=== PATIENT | female | born 1990 | race Caucasian/White ===

== ENCOUNTER 2020-06-13 09:54 | Outpatient (CLI) | payer MEDICAID, SELFPAY ==
--- NOTE | 2020-06-13 10:02 | XR_ITS ---
WS: [id number] XR lumbar spine min 4V [id number] REASON FOR EXAM: BACK PAIN FINDINGS: There are 6 nonrib-bearing lumbar vertebral bodies. There is no significant compression deformity or focal lesion of the lumbar vertebral bodies. Mild narrowing of the intervertebral disc space between the last unreactive vertebral body and S1. There are mild degenerative changes in the facet joints of the last 2 segments of the lumbar spine. XR/XR lumbar spine min 4V [id number] IMPRESSION: 6. Lumbar vertebral bodies. Mild changes of degenerative spondylosis as above.
--- NOTE | 2020-06-13 10:02 | XR_ITS ---
WS: [id number] XR thoracic spine 2V [id number] REASON FOR EXAM: BACK PAIN FINDINGS: No abnormality of the thoracic vertebral bodies. Intervertebral disc spaces are well preserved. There is normal alignment of the thoracic spine. XR/XR thoracic spine 2V [id number] IMPRESSION: No significant abnormality.
== END 2020-06-13 09:55 | disposition home or self-care (01) ==
PROVIDERS: PCP Internal Medicine; Visit Provider Nurse Practitioner Family
DX: M54.6 Pain in thoracic spine (principal); M54.5 Low back pain
CPT/HCPCS: 72070; 72114

== ENCOUNTER 2020-07-02 10:24 | Outpatient (RCR) | payer MEDICAID, SELFPAY | END 2020-07-04 23:59 | disposition home or self-care (01) | LOC: SPT 10:24 | PROVIDERS: PCP Internal Medicine; Referring Provider Internal Medicine; Visit Provider Internal Medicine | DX: M54.5 Low back pain (principal); M54.6 Pain in thoracic spine; G89.29 Other chronic pain | CPT/HCPCS: 97110; 97161 ==

== ENCOUNTER 2020-07-05 06:00 | Outpatient (RCR) | payer MEDICAID, SELFPAY | END 2020-08-04 23:59 | disposition home or self-care (01) | LOC: SPT 06:00 | PROVIDERS: PCP Internal Medicine; Referring Provider Internal Medicine; Visit Provider Internal Medicine | DX: M54.5 Low back pain (principal); M54.6 Pain in thoracic spine; M54.9 Dorsalgia, unspecified | CPT/HCPCS: 97110 ==

== ENCOUNTER 2020-10-17 07:19 | Emergency (ER) | payer MEDICAID, SELFPAY ==
[2020-10-17] VITALS (12 sets, daily range): BP systolic 97–120; BP diastolic 55–78; PULSE 52–75; RESP 16–18; TEMP 36.8; O2SAT 98–100; BMI 23.8
--- NOTE | 2020-10-17 07:29 | US_ITS ---
WS: [id number] RIGHT UPPER QUADRANT ULTRASOUND HISTORY: abd pain COMPARISON: None available. Liver: 15.8 cm in length. Normal size liver. No bile duct dilatation or mass. Gallbladder: Normally distended gallbladder. No hydrops or wall thickening. No pericholecystic fluid. No stones or polyps. CBD: 0.5 cm Pancreas: Normal size and echogenicity. Right kidney: 9.9 cm in length. Normal size kidney. There is very minimal splitting of the renal pelv is with fluid. No hydronephrosis. Aorta and IVC: Unremarkable abdominal aorta and IVC. No ascites. US/US gall bladder [id number] IMPRESSION: 1. Normal gallbladder and biliary duct system. 2. Negative liver.
--- NOTE | 2020-10-17 07:35 | ED_ITS ---
HPI - Abdominal Pain General: Chief Complaint: Abdominal Pain Stated Complaint: VOMITING FOR 3 DAYS, AB/BACK PAIN Time Seen by Provider: 10/17/20 07:20 History of Present Illness: HPI narrative: 30-year-old female presents emergency room with complaint of nausea vomiting and severe epigastric right upper quadrant abdominal pain. The pain began 2 days ago the nausea and vomiting has presented mostly overnight. She denies any dysuria urgency or frequency no hematemesis or coffee-ground emesis she is not ever had this before. She has really noticed anything that makes it better or worse she has not noticed any triggers for her. She denies any fever sweats chills no respiratory symptoms MD elicited complaint: abdominal pain Onset (ago): day(s) Pain Consistency: constant Location: Epigastric Severity: severe Quality: cramping and stabbing Radiation: back Migration to: RUQ Exacerbating factors: nothing Relieving factors: nothing Associated Symptoms: Reports anorexia, bloating, GI cramping, nausea, poor appetite and vomiting; Denies belching, change in bowel habits, change in stool character, chills, coffee ground emesis, constipation, diarrhea, dyspepsia, dysuria, excessive flatus, fever(s), heartburn, hematochezia, hematuria, hematemesis, fecal incontinence, loose stools, melena and syncope Review of Systems Const: Denies: fever(s) or chills ENMT: Denies: throat pain, ear or mastoid pain, nasal discharge or nasal congestion Card: Denies: syncope Resp: Denies: dyspnea, productive cough or non-productive cough GI: Reports: nausea, vomiting, bloating and GI cramping; Denies: hematemesis, coffee ground emesis, heartburn, diarrhea, constipation, belching, excessive flatus, fecal incontinence, change in bowel habits, change in stool character, hematochezia or melena : Denies: dysuria or hematuria Skin/Breast: Denies: rash or pruritus PFSH ED PFSH: Social History Smoking and tobacco status: current every day smoker Physical Exam Const: GENERAL APPEARANCE: cooperative ORIENTATION/CONSCIOUSNESS: Yes awake, Yes oriented to person, Yes oriented to place and Yes oriented to time HENMT: COMMON NORMALS: normocephalic, atraumatic and hearing grossly normal bilaterally HEAD & SCALP: normocephalic and atraumatic Neck/C-Spine: COMMON NORMALS: no JVD Resp: COMMON NORMALS: normal respiratory effort, No retractions, No use of accessory muscles and clear to auscultation bilaterally AUSCULTATION: clear to auscultation bilaterally Cardio: COMMON NORMALS: no JVD, regular rate, regular rhythm and No murmurs present (Cardio) RATE: regular rate RHYTHM: regular rhythm GI: COMMON NORMALS: No hepatosplenomegaly present AUSCULTATION: Yes Hypoactive bowel sounds present PALPATION: Yes Tenderness to palpation present (GI) Details: RUQ, No Guarding due to palpation present (GI) and Yes No hepatosplenomegaly present Extremity: COMMON NORMALS: normal to inspection, capillary refill normal, no clubbing, cyanosis or edema, no calf tenderness and no pedal edema Neuro: SENSORIUM/ORIENTATION: Yes oriented to person, Yes oriented to place and Yes oriented to time Skin: COMMON NORMALS: no rashes or lesions noted GENERAL SKIN EXAM: no rashes or lesions noted Course Vital Signs: Vital signs: Vital Signs Temperature 98.2 F 10/17/20 07:22 Pulse Rate 65 10/17/20 10:30 Respiratory Rate 18 10/17/20 10:35 Blood Pressure 106/69 10/17/20 10:30 Pulse Oximetry 98 10/17/20 10:35 MDM - Abdominal Pain MDM Narrative: Medical decision making narrative: Labs ultrasound and CT overall unremarkable patient's vital signs are good however she has significant right upper quadrant epigastric pain. She did have a little improvement with the GI cocktail but not much narcotics had relieved more of the pain. I suspect she has biliary dyskinesia we will go and discharge her home with hydrocodone and antiemetics advised very bland diet. Initially should do clear liquids for 24 hours we will set her up for a HIDA scan and a surgical consultation return if is unable to keep fluids down. Lab Data: Labs: Lab Results 10/17/20 10/17/20 10/17/20 Range/Units 07:40 07:40 07:40 WBC 7.7 (4.0-10.0) 10^3/ uL RBC 4.88 (4.1-5.3) 10^6/u L Hgb 14.7 (11.5-15.3) g/dL Hct 43.5 (37.0-47.0) % MCV 89.1 (81-99) fL MCH 30.1 (28.0-34.0) pg MCHC 33.8 (30.0-36.0) g/dL RDW 11.5 L (12.1-15.1) % Plt Count 174 (130-400) 10^3/c mm MPV 11.7 H (7.4-10.4) fL Neut % (Auto) 65.5 % Lymph % (Auto) 25.5 % Reeves % (Auto) 6.3 % Eos % (Auto) 1.9 % Baso % (Auto) 0.5 % Neut # (Auto) 5.05 (1.8-7.7) 10^3/u L Lymph # (Auto) 2.0 (0.8-4.8) 10^3/u L Reeves # (Auto) 0.5 (0.2-0.9) 10^3/u L Eos # (Auto) 0.2 (0.0-0.8) 10^3/u L Baso # (Auto) 0.0 (0.0-0.1) 10^3/u L Nucleated RBC % (a uto) 0 % Nucleated RBCs # 0.0 /100WBC Sodium 138 (136-145) mmol/L Potassium 4.1 (3.5-5.1) mmol/L Chloride 104 (98-107) mmol/L Carbon Dioxide 25 (22-29) mmol/L Anion Gap 13.1 (5-19) BUN 14 (6-20) mg/dL Creatinine 0.6 (0.5-0.9) mg/dL GFR Calculation 117.4 (90-130) mL/min Glucose 103 (65-115) mg/dL Calculated Osmolal ity 287 (285-295) mOsm/k g Calcium 8.8 (8.5-10.5) mg/dL Magnesium 2.0 (1.7-2.3) mg/dL Total Bilirubin 0.3 (0.15-1.2) mg/dL AST 11 (0-32) U/L ALT 10 (0-33) U/L Alkaline Phosphata se 75 (35-105) IU/L Total Protein 6.5 L (6.6-8.7) g/dL Albumin 4.3 (3.5-5.2) g/dL Globulin 2.2 (1.3-4.6) g/dL Lipase 18 (13-60) U/L HCG, Qual Negative (Negative) Urine Color (Yellow) Urine Appearance (CLEAR) Urine pH (5-7) Ur Specific Gravit y (1.005-1.030) Urine Protein (Negative) Urine Glucose (UA) (Normal) Urine Ketones (Negative) Urine Blood (Negative) Urine Nitrate (Negative) Urine Bilirubin (Negative) Prot Sulfosalicyli c Acd (Negative) Urine Urobilinogen (Negative) mg/dL Ur Leukocyte Haven ase (Negative) Urine RBC (0-2) /hpf Urine WBC (0-5) /hpf Ur Squamous Epith Cells (0-5) /hpf Amorphous Sediment Urine Bacteria (NONE) /hpf 10/17/20 Range/Units 09:18 WBC (4.0-10.0) 10^3/ uL RBC (4.1-5.3) 10^6/u L Hgb (11.5-15.3) g/dL Hct (37.0-47.0) % MCV (81-99) fL MCH (28.0-34.0) pg MCHC (30.0-36.0) g/dL RDW (12.1-15.1) % Plt Count (130-400) 10^3/c mm MPV (7.4-10.4) fL Neut % (Auto) % Lymph % (Auto) % Reeves % (Auto) % Eos % (Auto) % Baso % (Auto) % Neut # (Auto) (1.8-7.7) 10^3/u L Lymph # (Auto) (0.8-4.8) 10^3/u L Reeves # (Auto) (0.2-0.9) 10^3/u L Eos # (Auto) (0.0-0.8) 10^3/u L Baso # (Auto) (0.0-0.1) 10^3/u L Nucleated RBC % (a uto) % Nucleated RBCs # /100WBC Sodium (136-145) mmol/L Potassium (3.5-5.1) mmol/L Chloride (98-107) mmol/L Carbon Dioxide (22-29) mmol/L Anion Gap (5-19) BUN (6-20) mg/dL Creatinine (0.5-0.9) mg/dL GFR Calculation (90-130) mL/min Glucose (65-115) mg/dL Calculated Osmolal ity (285-295) mOsm/k g Calcium (8.5-10.5) mg/dL Magnesium (1.7-2.3) mg/dL Total Bilirubin (0.15-1.2) mg/dL AST (0-32) U/L ALT (0-33) U/L Alkaline Phosphata se (35-105) IU/L Total Protein (6.6-8.7) g/dL Albumin (3.5-5.2) g/dL Globulin (1.3-4.6) g/dL Lipase (13-60) U/L HCG, Qual (Negative) Urine Color Straw (Yellow) Urine Appearance Sl hazy (CLEAR) Urine pH 8 H (5-7) Ur Specific Gravit y 1.010 (1.005-1.030) Urine Protein Neg (Negative) Urine Glucose (UA) Norm (Normal) Urine Ketones Negative (Negative) Urine Blood Neg (Negative) Urine Nitrate Negative (Negative) Urine Bilirubin Neg (Negative) Prot Sulfosalicyli c Acd Negative (Negative) Urine Urobilinogen Norm (Negative) mg/dL Ur Leukocyte Haven ase Negative (Negative) Urine RBC None (0-2) /hpf Urine WBC 0-4 H (0-5) /hpf Ur Squamous Epith Cells 55-80 H (0-5) /hpf Amorphous Sediment Not Reportable Urine Bacteria 1+ H (NONE) /hpf Discharge Plan Discharge Patient Disposition: Home Clinical Impression: Abdominal pain, Biliary dyskinesia Condition: Stable Prescriptions: New hydrocodone-acetaminophen 5-325 mg tablet 1 tab PO Q6H PRN (Reason: pain) Qty: 25 RF: 0 Zofran 4 mg tablet 4 mg PO Q6H PRN (Reason: nausea and vomiting) Qty: 25 RF: 0 No Action Prozac 20 mg Capsule 20 mg PO DAILY RF: 0 Discharge Orders: Discharge ED (Routine); Ordered 10/17/20 Ordered By: Peter Sotomayor Referrals: Moon,Fozia M, DO [Primary Care Provider] - Discharge Diet: Clear Liquid Discharge Activity: Increase activity as tolerated Patient Instructions: Abdominal Pain (ED), Opioid Safety Activity Restrictions/Additional Instructions: Case management will call with appointments for HIDA scan and referral to general surgery. Coding Level of Care Code ED Staff Nurse [facility] Resource Team for [employer] Fwrod Exam Comprehensive
[2020-10-17] MEDS: ondansetron 2 mg/ML SDV 2 mL 4 MG IVP (07:42)
[2020-10-17] MEDS: morphine 4 mg/mL SDV 1 mL IVP (07:43)
[2020-10-17] MEDS: sodium chloride 0.9% 1,000 ML 999 ML IV (07:43)
--- NOTE | 2020-10-17 07:47 | PC.NURSE ---
US done at bedside. Pt states she is unable to void at this time d/t dehydration.
--- NOTE | 2020-10-17 07:55 | CT_ITS ---
WS: [id number] CT ABDOMEN AND PELVIS WITH CONTRAST HISTORY: Mid abdominal pain with nausea and vomiting for 3 days. TECHNIQUE: Imaging performed of the abdomen and pelvis with IV contrast. Single phase imaging of the abdomen. Coronal and sagittal reformats are submitted. All CT scans at [facility] use at least one of these dose optimization techniques: automated exposure control; mA and/or kV adjustment per patient size (includes targeted exams where dose is matched to clinical indication); or iterativ e reconstruction. IV CONTRAST: Omnipaque 300; 95 mL IV. Oral contrast: No DLP: 733.3 mGy.cm COMPARISON: 11/04/2018 Lower thorax: Mild dependent changes at the lung bases. Heart is normal size. No hiatal hernia. Liver/biliary system: Normal size liver. There is very mild central bile duct dilatation. This mild d ilatation was present on the prior study of 11/04/2018. Common bile duct is normal size. Gallbladder: No gallbladder hydrops. No adjacent fluid. The wall is not thickened. No stones identifi ed. Pancreas: Prominent pancreas due to young age of the patient is similar to the prior studies. Spleen: Normal. Adrenal glands: Normal. Right kidney: Normal. Left kidney: Normal. Aorta: Normal. Lymphadenopathy: None. Free fluid: None. GI tract: There is significant thickening involving the body and antrum of the stomach. Mucosal edema extends up to 13 mm. Diffuse constipation. Appendix not identified but no evidence for appendicitis. Abdominal wall: Unremarkable abdominal wall. No hernia. Pelvis: Prior hysterectomy. No ascites or adenopathy. RIGHT ovary is identified and contains a follic le. Bones: Unremarkable. CT/CT abdomen pelvis w con* [id number] IMPRESSION: 1. Marked thickening and edema involving the body and antrum of the stomach. C onsider gastritis or peptic ulcer disease. 2. Negative gallbladder. 3. Very slight bile duct dilatation is similar to prior studies. 4. Prior hysterectomy. 5. Constipation.
[2020-10-17 08:01] LABS: Basophils % 0.5 %; Eosinophils # 0.2 10^3/uL (0.0-0.8); Eosinophils % 1.9 %; Hematocrit 43.5 % (37.0-47.0); Hemoglobin 14.7 g/dL (11.5-15.3); Lymphocytes % 25.5 %; Mean Corpuscular HGB Conc 33.8 g/dL (30.0-36.0); Mean Corpuscular Hemoglobin 30.1 pg (28.0-34.0); Mean Corpuscular Volume 89.1 fL (81-99); Mean Platelet Volume 11.7 fL (7.4-10.4); Monocytes # 0.5 10^3/uL (0.2-0.9); Monocytes % 6.3 %; Neutrophils # 5.05 10^3/uL (1.8-7.7); Neutrophils % 65.5 %; Nucleated Red Blood Cells % 0 %; Platelet Count 174 10^3/cmm (130-400); Red Blood Count 4.88 10^6/uL (4.1-5.3); Red Cell Distribution Width 11.5 % (12.1-15.1); White Blood Count 7.7 10^3/uL (4.0-10.0)
[2020-10-17 08:09] LABS: HCG, Serum Qual Negative (Negative)
[2020-10-17 08:15] LABS: Alanine Aminotransferase 10 U/L (0-33); Albumin Level 4.3 g/dL (3.5-5.2); Alkaline Phosphatase 75 IU/L (35-105); Anion Gap 13.1 (5-19); Aspartate Amino Transferase 11 U/L (0-32); Blood Urea Nitrogen 14 mg/dL (6-20); Calcium 8.8 mg/dL (8.5-10.5); Carbon Dioxide 25 mmol/L (22-29); Chloride 104 mmol/L (98-107); Globulin 2.2 g/dL (1.3-4.6); Glomerular Filtration Rate 117.4 mL/min (90-130); Glucose 103 mg/dL (65-115); Lipase 18 U/L (13-60); Osmolality Calculated 287 mOsm/kg (285-295); Potassium 4.1 mmol/L (3.5-5.1); Sodium 138 mmol/L (136-145); Total Bilirubin 0.3 mg/dL (0.15-1.2); Total Protein 6.5 g/dL (6.6-8.7)
--- NOTE | 2020-10-17 08:18 | PC.NURSE ---
Pt to CT
[2020-10-17] MEDS: iohexol 300 mg/mL 100 mL Btl IV (08:28)
--- NOTE | 2020-10-17 09:13 | PC.NURSE ---
Pt to BR with clean catch kit and instructions for UA.
[2020-10-17] MEDS: lidocaine 2% viscous 15 ML, aluminum-mag hydrox-simethicon 30 ML, sucralfate oral liq 1 GM PO (09:19)
--- NOTE | 2020-10-17 09:22 | PC.NURSE ---
UA collected, labeled and sent to lab.
[2020-10-17] MEDS: promethazine 25 mg/mL SDV 1 mL IM (09:44)
[2020-10-17] MEDS: morphine 4 mg/mL SDV 1 mL 6 MG IVP (09:45)
[2020-10-17 10:02] LABS: Urine Appearance SL Hazy (CLEAR); Urine Color Straw (Yellow)
[2020-10-17 10:03] LABS: Add Urine Culture? No; Add Urine Microscopic? YES; Bacteria Urine 1+ /hpf; Bilirubin Urine Neg (Negative); Blood Urine Neg (Negative); Glucose Urine UA Norm (Normal); Ketones Urine Negative (Negative); Leukocyte Esterase Urine Negative (Negative); Nitrate Urine Negative (Negative); Protein Urine Neg (Negative); Squamous Epithelial Cell Urine 55-80 /hpf (0-5); Sulfosalicylic Acid Urine Negative (Negative); Urobilinogen Urine Norm (Negative); WBC Urine 0-4 /hpf (0-5); pH Urine 8 (5-7)
[2020-10-17] MEDS: morphine 4 mg/mL SDV 1 mL 2 MG IVP (10:35)
--- NOTE | 2020-10-18 10:53 | DCPLANNER ---
manager concrete had message to schedule an outpatient HIDA scan for patient. manager concrete faxed signed order to centralized scheduling. manager concrete also had message to schedule a follow up appointment for patient with general surgery for consultation for biliary dyskinesia. manager concrete emailed patients information to both Kelsea and Antoinette at [facility] general surgery. Patients information will be printed and reviewed. Clinic will call patient with appointment information.
--- NOTE | 2020-10-25 15:18 | DCPLANNER ---
Patient has an out patient HIDA scan scheduled for October at 10:00. Centralized scheduling will call patient with appointment information. Patient has a follow up appointment scheduled for Wednesday, October 28, 2020 at 2:[address] Cuba at [facility] General Surgery. Clinic will call patient with appointment information.
--- NOTE | 2021-01-08 07:47 | DCPLANNER ---
Patient had a HIDA scan scheduled for 10.31.20 - patient did attend appointment Patient had a follow up appointment scheduled for 10.28.[address] Trujillo at [facility] - patient did attend appointment.
== END 2020-10-17 10:58 | disposition home or self-care (01) ==
PROVIDERS: Emergency Provider Family Medicine; PCP Internal Medicine
DX: R10.9 Unspecified abdominal pain (principal); K82.8 Other specified diseases of gallbladder; F17.210 Nicotine dependence, cigarettes, uncomplicated
CPT/HCPCS: 74177; 76705; 80053; 81001; 83690; 83735; 84703; 85025; 96361; 96372; 96374; 96375; 96376; 99284; J2270; J2405; J2550; J7030; Q9967

== ENCOUNTER 2020-10-31 09:15 | Outpatient (CLI) | payer MEDICAID, SELFPAY ==
--- NOTE | 2020-10-31 09:20 | NM_ITS ---
WS: [id number] NUCLEAR MEDICINE HIDA SCAN WITH GALLBLADDER EJECTION FRACTION HISTORY: RUQ PAIN COMPARISON: CT 10/17/2020 TECHNIQUE: The patient was intravenously injected with 7.7 mCi of TC99m Mebrofenin. Immediate imaging over the right upper quadrant was followed by 5 minute image and additional images for a total of 60 minutes. Normal uptake of radiotracer throughout the liver. Activity identified in the gallbladder at 10 minutes and well distended by 60 minutes. Activity in the proximal small bowel was seen by 10 minutes. Good washout of the radiotracer from the liver by 60 minutes. The patient then drank 8 ounces of Ensure Plus. Ejection fraction at 60 minutes was 61%. Normal GB ej ection fraction is 35-75%. Post fatty meal symptoms: None. NM/NM hepatobiliary w phar* [id number] IMPRESSION: 1. Normal HIDA scan. 2. Normal gallbladder ejection fraction.
== END 2020-10-31 09:16 | disposition home or self-care (01) ==
LOC: NM 09:16
PROVIDERS: PCP Internal Medicine; Visit Provider Family Medicine
DX: R10.11 Right upper quadrant pain (principal)
CPT/HCPCS: 78227; A9537

== ENCOUNTER → 2020-11-08 10:37 | Outpatient (BNVA) | payer MEDICAID, SELFPAY | PROVIDERS: PCP Internal Medicine; Visit Provider Surgery | DX: Z01.812 Encounter for preprocedural laboratory examination (principal); Z20.822 Contact with and (suspected) exposure to COVID-19 | CPT/HCPCS: 87635 ==

== ENCOUNTER 2020-11-12 09:02 | Day surgery (SDC) | payer MEDICAID, SELFPAY ==
[2020-11-11 17:08] VITALS: BMI 23.2
[2020-11-12] VITALS (8 sets, daily range): BP systolic 112–129; BP diastolic 70–91; PULSE 62–89; RESP 12–183; TEMP 36.3–36.7; O2SAT 98–100
[2020-11-12] MEDS: acetaminophen 1,000 MG/100 ML PIGGYBACK 400 MG IV (09:35)
[2020-11-12] MEDS: sodium chloride 0.9% 1,000 ML 30 ML IV (09:35)
--- NOTE | 2020-11-12 09:47 | ANES.PREANE2 ---
Pre-Anesthetic Assessment Pre-Anesthetic Assessment: Height/Weight: Height 1.5 m Weight 52.163 kg Temp Pulse Resp BP Pulse Ox 97.4 F L 72 183 H 116/80 100 11/12/20 09:18 11/12/20 09:18 11/12/20 09:18 11/12/20 09:18 11/12/20 09:18 Preop Diagnosis: Abdominal pain Proposed Procedure: Operation Date: 11/12/20 10:40 Proposed Procedures p Laparoscopic Cholecystectomy 11620 r10.1 53845 R10.1(Not Applicable) - Joe Trujillo MD s EGD(Not Applicable) - Joe Trujillo MD Familial anesthetic complications: Episodes of Low BP during anesthesia Was Beta German taken within 24 hours: N/A Was Clonidine taken within 24 hours: N/A Last intake: Intake Last Liquid Date 11/11/20 Last Liquid Time 23:30 Last Solid Date 11/11/20 Last Solid Time 19:30 Social: Social History: Tobacco and No alcohol Exam: Pre-Anes Outpt Exam: alert, oriented x 3, clear to auscultation bilaterally and regular rate & rhythm Airway: Cervical ROM: WNL MP: 2 Dentition: Full Neuropsych: Neuropsych: Depression Anesthetic Plan: ASA status: 2 Anesthesia: General Risk of > 500 ml blood loss (7ml/kg in children): No Meds/Allergies Current Medications: Current Medications Generic Name Dose Route Start Last Admin Trade Name Freq PRN Reason Stop Dose Admin Sodium Chloride 1,000 mls @ 30 ml s/hr 11/12/20 09:15 11/12/20 09:35 Sodium Chloride 0.9% IV 11/13/20 09:14 30 mls/hr .Q24H PHILIP Administration PFSH Anesthesia PFSH: Family History Father Anesthesia complication Cancer Hypertension Grandmother Chronic kidney disease (CKD) Dementia Grandfather Dementia Denies family history of Diabetes CAD (coronary artery disease) Clotting disorder Hyperlipidemia Psychiatric illness Suicide Bleeding disorder Family history of premature coronary artery disease Lung disease Stroke Social History Smoking and tobacco status: current every day smoker Data Anesthesia Cardiac Studies: No Data to Display
--- NOTE | 2020-11-12 10:24 | W.PM.OPSUD ---
Surgery/Procedure H&P Update DATE OF PROCEDURE: November 12, 2020 DATE H&P PERFORMED: 10/28/20 H&P UPDATE INFORMATION: I have reviewed H&P completed within last 30 days, I have examined patient prior to procedure and No changes to prior documentation PREOP DIAGNOSIS: Abdominal pain PRIMARY INDICATION FOR PROCEDURE: The same PLANNED PROCEDURE: Operation Date: 11/12/20 10:40 Proposed Procedures p Laparoscopic Cholecystectomy 50924 r10.1 39229 R10.1(Not Applicable) - Joe Trujillo MD s EGD(Not Applicable) - Joe Trujillo MD
[2020-11-12] MEDS: clindamycin 600 MG/50 ML PREMIX 100 MG IV (10:42)
[2020-11-12] MEDS: lidocaine 2% INJ 20 mL INJECTION (11:20)
--- NOTE | 2020-11-12 12:17 | P.OP_ITS ---
Operative Report Date of procedure: November 12, 2020 Pre-op Diagnosis: Abdominal pain Post-op diagnosis: other (Chronic cholecystitis and prepyloric gastritis) Procedure Done: Laparoscopic cholecystectomy Esophagogastroduodenoscopy with biopsy Implants: Pieces of Surgicel at the gallbladder fossa Specimens removed/disposition: Gallbladder and contents Cold biopsy per antrum for Pb Surgeon: Joe Trujillo Articulation Officer: Surgical chay Lovelace, medical student Meli Huitron Anesthesia: General (ANALI Chairez and Dr. Lawrence) Estimated blood loss (mL): 25 IV fluids (mL): 900 Condition: stable Disposition: same day Brief History: Symptomatic gallbladder disease and gastritis. Full H&P and informed consent per chart Procedure: Patient was identified in the holding area and taken back to the operative suite, placed in supine position intubated by anesthesia . Time-out was done verifying the patient's name/date of /planned procedure and destination after the procedure, all were in agreement. SCDs confirmed to be functioning, preoperative antibiotics administered per protocol, and beta roger protocol was confirmed. Patient was appropriately secured to the table, footboard was applied to the OR table, before prep and drape anesthesia was asked to tilt the table back and forth to make sure that the patient is appropriately secured and she was. Prep and drape of the abdomen was done under the usual sterile technique, followed by that infraumbilical skin incision,skin incision was done by a 15 blade knife, and stay sutures were applied to the fascia and Shoemaker trocar technique was used to enter the abdominal without injuring any abdominal viscera, started by low flow gas insufflation followed by a high flow, started with a 10 mm laparoscope and under direct vision there was no evidence of any injuries, the scope then switched to a 30? ,10 millimeter scope and under direct visualization 5 millimeter trocar was inserted in the epigastric region followed by two 5 mm trocars were inserted in the right upper quadrant that was done after injection of local lidocaine 2% at all incision sites. Gallbladder showed chronic cholecystitis Patient was then positioned in the head up and tilted to the left Ratcheted forceps were introduced into the lateral most 5mm port and was applied unto the fundus of the gallbladder cephalad and using Bullet forceps the infundibulum of the gallbladder was retracted laterally. Using [place] forceps then L-hook cautery to dissect the peritoneum overlying the Calot's triangle whihc was then opened medially and laterally until the cystic duct and the cystic artery were skeletonized. Dissection was carried along the body of the gallbladder and after ensuring critical view of safety was identfied. Cystic duct and cystic artery where seen connected to the gallbladder. Clips wer e applied on the cystic duct towards the common bile duct 1 towards the gallbladder then divided is in sharp scissors, 2 clips were then applied onto the cystic artery and 1 towards the gallbladder and divided by sharp scissors. Additional clip was applied onto a traversing vessel. Dissection was then carried along of the gallbladder from the gallbladder fossa using cautery as well as sharp dissection with heat energy. The gallbladder then was dissected out from the gallbladder fossa totally , cholecystectomy was then achieved and was placed in an Endo Catch bag and then retrieved from the Shoemaker trocar site under direct visualization using a 5 mm 30? scope through the epigastric trocar, specimen was then passed to the circulating nurse to go for permanent pathology,irrigation and hemostasis was done to the gallbladder fossa after hemostasis was secured, final survey laparoscopy was done that showed no injuries. Suction irrigation was obtained,. While the patient is still under anesthesia ,I scrubbed out and started introducing the EGD via the mouth under direct visualization.I was able to assess the esophagus stomach and duodenum till the second part, prepyloric gastritis was noticed. GE junction at 40 cm from the incisors, cold biopsy was obtained from the antrum for CLOtest. The scope was retrieved under direct visualization and gas was deflated,no biopsies were obtained at that point. The procedure was done under the laparo endoscopic view Afterwards I scrubbed back in Final survey laparoscopy was done that showed no injuries or bleeding The infraumbilical fascial defect was then closed using interrupted #1 PDS sutures using a fascial closure device ;Sterling Gore under direct visualization Gas was allowed to deflate,Trocars were then taken out under direct vision there was no evidence of bleeding Specimen was passed to the circulating nurse for permanent pathology. No drains were placed and the infraumbilical incision as well as all trocar sit es were closed by 3-0 Vicryl by 4-0 Monocryl to approximate the skin edges of the supraumbilical incision, dressing was applied in the form of Dermabond and the patient patient got extubated and was taken to recovery area in a stable condition. Count of sponges, needles and instruments were completed at the end of the procedure I was present for the whole entire procedure.
--- NOTE | 2020-11-12 12:40 | P.PCN_ITS ---
PACU note PACU note: VSS, Good respiratory effort, report to RESTAURANT INSPECTOR Post-Anesthesia Exam: awake
--- NOTE | 2020-11-12 12:40 | PM.PACU ---
PACU note PACU note: VSS, Good respiratory effort, report to DISTILLERY MANAGER Post-Anesthesia Exam: awake
[2020-11-12] MEDS: ondansetron 2 mg/ML SDV 2 mL 4 MG IVP (12:46)
[2020-11-12] MEDS: morphine 4 mg/mL SDV 1 mL IVP (13:24)
[2020-11-12] MEDS: HYDROcodone-acetaminophen 5-325 mg Tablet 1 TAB PO (13:30)
--- NOTE | 2020-11-12 14:30 | ANE.PACU2 ---
Inpatient post-anesthesia follow up: Airway intact: Yes Vital signs: Temperature 97.4 F Pulse Rate 89 Respiratory Rate 22 Blood Pressure 129/89 Pulse Oximetry 100 Oxygen Delivery Me thod Room Air Oxygen Flow Rate Fraction of Inspir ed Oxygen Hydration adequate: Yes Nausea and vomiting: No Pain level: 2 Mental status: Baseline
[2020-11-13 09:37] LABS: H. Pylori / CLO Test Negative
== END 2020-11-12 13:59 | disposition home or self-care (01) ==
PROVIDERS: PCP Internal Medicine; Visit Provider Surgery
PROC: 0FT44ZZ Resection of Gallbladder, Percutaneous Endoscopic Approach (ICD-10-PCS; CPT 47562; principal; 2020-11-12 10:20)
PROC: 0DJ08ZZ Inspection of Upper Intestinal Tract, Via Natural or Artificial Opening Endoscopic (ICD-10-PCS; CPT 43235; 2020-11-12 10:20)
DX: K81.1 Chronic cholecystitis (principal); F32.9 Major depressive disorder, single episode, unspecified; F17.210 Nicotine dependence, cigarettes, uncomplicated
CPT/HCPCS: 47562; 87077; 88304; 96365; J2270; J2405; J2704; J2710; J3010; J3490; J7030

== ENCOUNTER 2020-11-15 09:19 | Outpatient (CLI) | payer MEDICAID, SELFPAY ==
--- NOTE | 2020-11-15 09:37 | XR_ITS ---
WS: [id number] Acute abdomen series, 11/15/2020 Clinical Data: ABD BLOATING Comparison: None. Findings: In the chest there are no nodules, masses or effusions. The heart is normal. The pulmonary vascularity is not increased. There is a probable artifact overlying the left lateral chest. No free air is seen beneath the diaphragms. No abnormal intra-abdominal masses or calcifications are seen. There are clips in the right upper quadrant from a cholecystectomy. The bladder is full. XR/XR acute abdomen series [id number] Impression: Negative acute abdomen series.
== END 2020-11-15 09:20 | disposition home or self-care (01) ==
PROVIDERS: PCP Internal Medicine; Visit Provider Surgery
DX: R14.0 Abdominal distension (gaseous) (principal)
CPT/HCPCS: 74022

== ENCOUNTER → 2021-02-14 10:17 | Outpatient (BNVA) | payer MEDICAID, SELFPAY | PROVIDERS: PCP Internal Medicine; Visit Provider Surgery | DX: Z20.822 Contact with and (suspected) exposure to COVID-19 (principal) | CPT/HCPCS: 87635 ==

== ENCOUNTER 2021-02-19 06:59 | Day surgery (SDC) | payer MEDICAID, SELFPAY ==
[2021-02-19 07:17] VITALS: BP 90/55; PULSE 84; RESP 18; TEMP 36.8; O2SAT 99
[2021-02-19] MEDS: sodium chloride 0.9% 1,000 ML 30 ML IV (07:27)
--- NOTE | 2021-02-19 08:48 | ANES.PREANE2 ---
Pre-Anesthetic Assessment Pre-Anesthetic Assessment: Height/Weight: Height 1.5 m Weight 52.163 kg Temp Pulse Resp BP Pulse Ox 98.2 F 84 18 90/55 99 02/19/21 07:17 02/19/21 07:17 02/19/21 07:17 02/19/21 07:17 02/19/21 07:17 Preop Diagnosis: Chronic diarrhea with blood Proposed Procedure: Operation Date: 02/19/21 08:45 Proposed Procedures p Colonoscopy 40639 r19.4(Not Applicable) - Joe Trujillo MD Familial anesthetic complications: none Was Beta German taken within 24 hours: N/A Was Clonidine taken within 24 hours: N/A Last intake: Intake Last Liquid Date 02/18/21 Last Liquid Time 22:30 Last Solid Date 02/17/21 Last Solid Time 12:00 Social: Social History: Tobacco and No alcohol Exam: Pre-Anes Outpt Exam: alert, oriented x 3, clear to auscultation bilaterally and regular rate & rhythm Airway: Cervical ROM: WNL MP: 2 Dentition: Full GI: GI: GERD Anesthetic Plan: ASA status: 1 Anesthesia: MAC Risk of > 500 ml blood loss (7ml/kg in children): No Meds/Allergies Current Medications: Current Medications Generic Name Dose Route Start Last Admin Trade Name Freq PRN Reason Stop Dose Admin Sodium Chloride 1,000 mls @ 30 ml s/hr 02/19/21 07:15 02/19/21 07:27 Sodium Chloride 0.9% IV 30 mls/hr .Q24H PHILIP Administration PFSH Anesthesia PFSH: Medical History Chronic cholecystitis Epigastric pain Family History Father Anesthesia complication Cancer Hypertension Grandmother Chronic kidney disease (CKD) Dementia Grandfather Dementia Denies family history of Diabetes CAD (coronary artery disease) Clotting disorder Hyperlipidemia Psychiatric illness Suicide Bleeding disorder Family history of premature coronary artery disease Lung disease Stroke Social History Smoking and tobacco status: current every day smoker Data Anesthesia Cardiac Studies: No Data to Display
--- NOTE | 2021-02-19 09:01 | W.PM.OPSFHP ---
Same Day Surgery H&P Indication for Procedure/HPI DATE OF PROCEDURE: February 19, 2021 CHIEF COMPLAINT/INDICATIONFOR SURGICAL PROCEDURE: Diarrhea PREOP DIAGNOSIS: Chronic diarrhea with blood PLANNED PROCEDRUE: Operation Date: 02/19/21 08:45 Proposed Procedures p Colonoscopy 74536 r19.4(Not Applicable) - Joe Trujillo MD Patient comes today as a follow-up status post laparoscopic cholecystectomy 11/12/2020. Patient reports history of IBS and some blood in stool, she has been having up to 15 times of bowel movements daily. Last time her thyroid gland was checked about a year ago and she never had a colonoscopy or stool studies. Patient also reports intermittent nausea Interim history 02/19/2021 Patient comes today for diagnostic colonoscopy ROS All systems have been reviewed negative except as per the above or per problem list Medications/Allergies* Home Medications Medication Instructions Recorded Confirmed Type fluoxetine [Prozac] 20 mg PO DAILY 10/17/20 02/19/21 History aripiprazole [Abilify] 2 mg PO DAILY 02/17/21 02/19/21 History Allergies/Adverse Reactions Allergy/AdvReac Type Severity Reaction Status Date / Time diphenhydramine Allergy RASH Verified 02/19/21 09:04 [From Benadryl] Penicillins Allergy RASH Verified 02/19/21 09:04 Sulfa (Sulfonamide Allergy RASH Verified 02/19/21 09:04 Antibiotics) Current Medications: Generic Name Dose Route Start Last Admin Trade Name Freq PRN Reason Stop Dose Admin Sodium Chloride 1,000 mls @ 30 mls/hr 02/19/21 07:15 02/19/21 07:27 Sodium Chloride 0.9% IV 30 mls/hr .Q24H PHILIP Administration Pertinent History/Comorbid Conditions* Medical History (Updated 12/21/20 @ 09:50 by Joe Trujillo MD) Chronic cholecystitis Epigastric pain Family History (Updated 10/28/20 @ 14:47 by Alley Choudhary LPN) Dementia Grandmother Grandfather Chronic kidney disease (CKD) Grandmother Anesthesia complication Father Cancer Father Hypertension Father Denies family history of Diabetes CAD (coronary artery disease) Clotting disorder Hyperlipidemia Psychiatric illness Suicide Bleeding disorder Family history of premature coronary artery disease Lung disease Stroke Social History Smoking and tobacco status: current every day smoker Pertinent Exam Findings alert, oriented x 3, clear to auscultation bilaterally, regular rate & rhythm and procedure specific exam findings (Abdominal examination shows some tenderness at the periumbilical area other) Otherwise abdominal examination unremarkable Recommendations Surgery/Procedure today (Colonoscopy with possible biopsy) Coding Level of Care Code Acute Oncology Physician Assistant for [facility] Evelyn
[2021-02-19 09:07] LABS: Thyroid Stimulating Hormone 0.84 uIU/mL (0.27-4.20)
[2021-02-19 09:26] VITALS: BP 89/43; PULSE 68; RESP 16; TEMP 36.2; O2SAT 99
[2021-02-19 09:42] VITALS: BP 109/75; PULSE 78; RESP 16; O2SAT 100
--- NOTE | 2021-02-19 13:39 | ANE.PACU2 ---
Inpatient post-anesthesia follow up: Airway intact: Yes Vital signs: Temperature 97.1 F Pulse Rate 78 Respiratory Rate 16 Blood Pressure 109/75 Pulse Oximetry 100 Oxygen Delivery Me thod Room Air Oxygen Flow Rate 2 Fraction of Inspir ed Oxygen Hydration adequate: Yes Nausea and vomiting: No Pain level: 2 Mental status: Baseline
== END 2021-02-19 09:50 | disposition home or self-care (01) ==
PROVIDERS: PCP Internal Medicine; Visit Provider Surgery
PROC: 0DJD8ZZ Inspection of Lower Intestinal Tract, Via Natural or Artificial Opening Endoscopic (ICD-10-PCS; CPT 45378; principal; 2021-02-19 08:45)
DX: K52.9 Noninfective gastroenteritis and colitis, unspecified (principal); F17.210 Nicotine dependence, cigarettes, uncomplicated; K63.5 Polyp of colon
CPT/HCPCS: 45380; 82274; 83630; 84443; 87493; 87506; 88305; 96360; 96361; J2704; J7030

== ENCOUNTER 2021-05-09 08:16 | Emergency (ER) | payer MEDICAID, SELFPAY ==
[2021-05-09 08:25] VITALS: BP 125/86; PULSE 119; RESP 16; O2SAT 96
[2021-05-09 08:28] VITALS: TEMP 36.8
--- NOTE | 2021-05-09 08:28 | PC.NURSE ---
Pt arrived via EMS from home where she lives with family. Pt reports she was sitting at her desk this morning and began to feel SOB, pt states she tried using her inhaler but it didnt help so she went out into the garage and laid down on the cool floor. Pt states she tried counting the spots on the ceiling to ground herself but nothing helped so she called her dad. EMS gave pt 1mg PO Ativan @ 0803 which aappeared to help calm pt. EMS report when they arrive pt was breathing at 55-66 R/min. Pt has a hx of Asthma.
--- NOTE | 2021-05-09 08:29 | XR_ITS ---
WS: [id number] Portable AP upright chest, 05/09/2021 Clinical Data: dyspnea/cough Comparison: PA and lateral chest, 08/25/2018. Findings: No nodules, masses or effusions are seen. The heart is normal. The pulmonary vascularity is not increased. No pneumothorax is seen. There is minimal patchy bilateral opacity in both lower lobe s which could represent pneumonia and/or atelectasis. There are clips in the right upper quadrant fro m a cholecystectomy. XR/XR chest 1V portable [id number] Impression: Minimal bilateral patchy opacity in the lower lobes and recommend repeat chest x-ray in one to 2 days.
[2021-05-09 08:33] VITALS: BP 125/86; PULSE 112; RESP 16; TEMP 36.8; O2SAT 96; BMI 24.8
--- NOTE | 2021-05-09 09:03 | PC.NURSE ---
Pts mother at bedside with pt and stepped out of pts room to get this RN. Pt states she is beginning to have another anxiety attack, pt reports she is having a hard time taking a deep breath, she is feeling anxious, her head is swimming and she feels like her chest is getting tighter. Dr. Sotomayor advised, new verbal orders given and entered
[2021-05-09] MEDS: LORazepam 2 mg Tablet PO (09:07)
--- NOTE | 2021-05-09 09:17 | ED_ITS ---
HPI - Anxiety General: Chief Complaint: Anxiety Stated Complaint: PANIC ATTACK Time Seen by Provider: 05/09/21 08:18 History of Present Illness: HPI narrative: 31-year-old female presents to the emergency room with complaints of a panic attack. Patient said she woke up and was having difficulty with breathing she used her albuterol and feels like she had a panic attack because of her asthma. When I came in to see the patient she is feeling much better she is not hyperventilating she is not having any wheezing and states she is no longer anxious. Patient arrived by ambulance. She is not had any fever sweats or chills recently. MD complaint: anxiety and shortness of breath Symptoms: dyspnea Severity: mild Quality: constant Place: home Provoking factors: emotional stress Relieving factors: nothing Exacerbating factors: nothing Associated symptoms: Reports malaise; Deny anorexia, chest pain, chills, confusion, diaphoresis, fever(s), headache(s), nausea, palpitations, short of breath, syncope, vomiting or weakness Review of Systems Const: Reports: malaise; Denies: fever(s), chills or diaphoresis ENMT: Denies: throat pain, ear or mastoid pain, nasal discharge or nasal congestion Card: Denies: chest pain, palpitations or syncope Resp: Reports: dyspnea and non-productive cough; Denies: productive cough GI: Denies: nausea or vomiting : Denies: flank pain, difficulty voiding, dysuria, urinary frequency or urinary urgency Skin/Breast: Denies: rash or pruritus Neuro: Denies: headache(s) or confusion PFS ED PFSH: Medical History Abdominal distension delivery delivered Chronic cholecystitis Chronic diarrhea Colon polyp Epigastric pain Surgical History H/O total hysterectomy History of breast lump removal left History of endometrial ablation History of meniscectomy of right knee History of tonsillectomy History of tubal ligation Family History Father Anesthesia complication Cancer Hypertension Grandmother Chronic kidney disease (CKD) Dementia Grandfather Dementia Denies family history of Diabetes CAD (coronary artery disease) Clotting disorder Hyperlipidemia Psychiatric illness Suicide Bleeding disorder Family history of premature coronary artery disease Lung disease Stroke Social History Smoking and tobacco status: current every day smoker Physical Exam Const: COMMON NORMALS: no acute distress GENERAL APPEARANCE: cooperative and comfortable ORIENTATION/CONSCIOUSNESS: Yes awake, Yes oriented to person, Yes oriented to place and Yes oriented to time HENMT: COMMON NORMALS: normocephalic, atraumatic and hearing grossly normal bilaterally HEAD & SCALP: normocephalic and atraumatic Neck/C-Spine: COMMON NORMALS: no JVD Resp: COMMON NORMALS: normal respiratory effort, No retractions, No use of accessory muscles and clear to auscultation bilaterally AUSCULTATION: clear to auscultation bilaterally Cardio: COMMON NORMALS: no JVD, regular rate, regular rhythm and No murmurs present (Cardio) RATE: regular rate RHYTHM: regular rhythm GI: COMMON NORMALS: Soft to palpation and No hepatosplenomegaly present AUSCULTATION: Yes normoactive bowel sounds PALPATION: Yes Soft to palpation, No Tenderness to palpation present (GI), No Guarding due to palpation present (GI) and Yes No hepatosplenomegaly present Extremity: COMMON NORMALS: normal to inspection, capillary refill normal, no clubbing, cyanosis or edema, no calf tenderness and no pedal edema Neuro: SENSORIUM/ORIENTATION: Yes oriented to person, Yes oriented to place and Yes oriented to time Skin: COMMON NORMALS: no rashes or lesions noted GENERAL SKIN EXAM: no rashes or lesions noted Course Vital Signs: Vital signs: Vital Signs Temperature 98.3 F 05/09/21 08:33 Pulse Rate 112 H 05/09/21 08:33 Respiratory Rate 16 05/09/21 08:33 Blood Pressure 125/86 05/09/21 08:33 Pulse Oximetry 96 05/09/21 08:33 MDM - Anxiety MDM Narrative: Medical decision making narrative: Patient seems to be largely having issues with anxiety. She is much better. There is a question of pneumonia on the chest x-ray is very subtle read radiographically. Working to go ahead and discharge her on doxycycline follow-up with primary care return if worsens. Discharge Plan Discharge Patient Disposition: Home Clinical Impression: Acute anxiety, Pneumonia Condition: Stable Prescriptions: New doxycycline hyclate 100 mg capsule 100 mg PO BID 10 Days Qty: 20 RF: 0 hydroxyzine HCl 25 mg tablet 25 mg PO Q8H PRN (Reason: anxiety) Qty: 14 RF: 0 No Action pantoprazole [Protonix] 40 mg tablet,delayed release (DR/EC) 40 mg PO DAILY 30 Days Qty: 30 RF: 2 ondansetron HCl [Zofran] 4 mg tablet 4 mg PO Q6H PRN (Reason: nausea and vomiting) Qty: 30 RF: 1 sucralfate [Carafate] 1 gram tablet 1 g PO Q8H 30 Days Qty: 90 RF: 2 mupirocin 2 % ointment 1 applic topical TID Qty: 22 RF: 0 fluoxetine [Prozac] 20 mg Capsule 20 mg PO DAILY RF: 0 cyclobenzaprine 10 mg tablet 10 mg PO TID PRN (Reason: muscle spasm) Qty: 30 RF: 1 aripiprazole [Abilify] 2 mg Tablet 2 mg PO DAILY RF: 0 Discharge Orders: Discharge ED (Routine); Ordered 05/09/21 Ordered By: Peter Sotomayor Referrals: Fozia Mustafa DO [Primary Care Provider] - Discharge Diet: Usual diet Discharge Activity: Resume usual activity Patient Instructions: Opioid Safety Activity Restrictions/Additional Instructions: Follow-up with your primary care doctor for further evaluation for asthma including possible pulmonary function test. Coding Level of Care Code ED Firefighting Equipment Specialist for [facility]
== END 2021-05-09 10:02 | disposition home or self-care (01) ==
PROVIDERS: Emergency Provider Family Medicine; PCP Internal Medicine
DX: F41.9 Anxiety disorder, unspecified (principal); J18.9 Pneumonia, unspecified organism; F17.210 Nicotine dependence, cigarettes, uncomplicated
CPT/HCPCS: 71045; 99283; 99291

== ENCOUNTER 2021-12-03 16:10 | Emergency (ER) | payer MEDICAID, SELFPAY ==
[2021-12-03 16:45] VITALS: PULSE 83; RESP 16; TEMP 36.3; O2SAT 97
--- NOTE | 2021-12-03 17:03 | PC.NURSE ---
pt states, i just got hot all over my body . blood draw needle removed waited with pt for 10 minutes. pt asked if she still felt the way she previously expressed and she shook her head and stated, no . pt then asked to return to lobby and wait for room to become available.
[2021-12-03 17:30] LABS: Add Urine Culture? No; Add Urine Microscopic? YES; Bacteria Urine TRACE /hpf; Bilirubin Urine 1+ (Negative); Blood Urine Neg (Negative); Glucose Urine UA Norm (Normal); Ketones Urine 1+ (Negative); Leukocyte Esterase Urine Trace (Negative); Mucus Urine 2+ /hpf; Nitrate Urine Negative (Negative); Protein Urine Trace (Negative); RBC Urine 0-4 /hpf (0-2); Squamous Epithelial Cell Urine 40-55 /hpf (0-5); Urine Appearance Clear (CLEAR); Urine Color Yellow (Yellow); Urobilinogen Urine 1 mg/dL (Negative); WBC Urine 0-4 /hpf (0-5); pH Urine 5 (5-7)
[2021-12-03 17:40] LABS: HCG, Serum Qual Negative (Negative)
[2021-12-03 17:46] LABS: Hematocrit 44.5 % (37.0-47.0); Hemoglobin 15.1 g/dL (11.5-15.3); Mean Corpuscular HGB Conc 33.9 g/dL (30.0-36.0); Mean Corpuscular Hemoglobin 30.2 pg (28.0-34.0); Mean Platelet Volume 11.5 fL (7.4-10.4); Platelet Count 155 10^3/cmm (130-400); Red Cell Distribution Width 11.6 % (12.1-15.1); White Blood Count 4.1 10^3/uL (4.0-10.0)
[2021-12-03 17:49] LABS: Alanine Aminotransferase 13 U/L (0-33); Albumin Level 4.4 g/dL (3.5-5.2); Alkaline Phosphatase 77 IU/L (35-105); Aspartate Amino Transferase 16 U/L (0-32); Blood Urea Nitrogen 13 mg/dL (6-20); Calcium 9.1 mg/dL (8.5-10.5); Carbon Dioxide 21 mmol/L (22-29); Chloride 104 mmol/L (98-107); Globulin 1.8 g/dL (1.3-4.6); Glomerular Filtration Rate 97.6 mL/min (90-130); Glucose 87 mg/dL (65-115); Lipase 25 U/L (13-60); Osmolality Calculated 285 mOsm/kg (285-295); Sodium 138 mmol/L (136-145); Total Bilirubin 0.3 mg/dL (0.15-1.2); Total Protein 6.2 g/dL (6.6-8.7)
[2021-12-03 17:53] LABS: Anion Gap 16.9 (5-19); Potassium 3.9 mmol/L (3.5-5.1)
--- NOTE | 2021-12-03 18:13 | CTR_ITS ---
PROCEDURE INFORMATION: Exam: CT Abdomen And Pelvis Without Contrast Exam date and time: 12/03/2021 7:05 PM Age: 31 years old Clinical indication: Vomiting; Abdominal pain; Generalized; Prior surgery; Surgery date: 6+ months; Surgery type: Katherine, hysterectomy, ablation, c sections; Additional info: Abd pain TECHNIQUE: Imaging protocol: Computed tomography of the abdomen and pelvis without contrast. Radiation optimization: All CT scans at this facility use at least one of these dose optimization techniques: automated exposure control; mA and/or kV adjustment per patient size (includes targeted exams where dose is matched to clinical indication); or iterative reconstruction. COMPARISON: CT abdomen pelvis w con* [id number] 10/17/2020 8:37 AM RADIATION DOSE METRICS: Total DLP (mGy-cm): 870.18 FINDINGS: Liver: Normal. No mass. Gallbladder and bile ducts: Cholecystectomy. Pancreas: Normal. No ductal dilation. Spleen: Normal. No splenomegaly. Adrenal glands: Normal. No mass. Kidneys and ureters: Normal. No hydronephrosis. Stomach and bowel: Prominent fluid in the small bowel along with some areas of wall thickening especially in the left abdomen concerning for an enteritis in the appropriate clinical setting. Appendix: No evidence of appendicitis. Intraperitoneal space: Unremarkable. No free air. No significant fluid collection. Vasculature: Unremarkable. No abdominal aortic aneurysm. Lymph nodes: Unremarkable. No enlarged lymph nodes. Urinary bladder: Unremarkable as visualized. Reproductive: Unremarkable as visualized. Bones/joints: Unremarkable. No acute fracture. Soft tissues: Unremarkable. CT/CT abdomen pelvis wo con [id number] IMPRESSION: 1. Prominent fluid in the small bowel along with some areas of wall thickening especially in the left abdomen concerning for an enteritis in the appropriate clinical setting. 2. Cholecystectomy.
--- NOTE | 2021-12-03 18:20 | ED_ITS ---
HPI - Abdominal Pain General: Chief Complaint: Abdominal Pain Stated Complaint: vomiting blood/abdominal pain Time Seen by Provider: 12/03/21 18:12 Source: patient Mode of arrival: ambulatory Limitations: no limitations History of Present Illness: 31-year-old female states that she had a lacerated cookout to remove 1 week and states she did have some epigastric pain on Wednesday and vomiting she initially states that she thought she might have food poisoning she states that today her vomiting is worse and had some very slight amount of blood in her vomit and has had increasing abdominal pain states she has diffuse abdominal pain she rates an 8 out of 10. She states it feels like when she had to have her gallbladder removed but she did have a cholecystectomy. She denies any fever denies any diarrhea. Associated Symptoms: Reports hematemesis and vomiting; Denies chills, dysuria and fever(s) Review of Systems Const: Denies: fever(s), chills, body aches or change in appetite Eyes: Denies: blurry vision or eye discomfort ENMT: Denies: throat pain or dental pain Card: Denies: chest pain Resp: Denies: dyspnea GI: Reports: abdominal pain, vomiting and hematemesis : Denies: dysuria Musc: Denies: neck pain or back pain Skin/Breast: Denies: rash Neuro: Denies: headache(s) Psych: Denies: depression Amaury/Lymph: Denies: easy bruising All/Imm: Denies: urticaria PFSH ED PFSH: Medical History Abdominal distension delivery delivered Chronic cholecystitis Chronic diarrhea Colon polyp Epigastric pain Surgical History H/O total hysterectomy History of breast lump removal left History of endometrial ablation History of meniscectomy of right knee History of tonsillectomy History of tubal ligation Family History Father Anesthesia complication Cancer Hypertension Grandmother Chronic kidney disease (CKD) Dementia Grandfather Dementia Denies family history of Diabetes CAD (coronary artery disease) Clotting disorder Hyperlipidemia Psychiatric illness Suicide Bleeding disorder Family history of premature coronary artery disease Lung disease Stroke Social History Smoking and tobacco status: current every day smoker Physical Exam Const: COMMON NORMALS: no acute distress, patient oriented x3 and healthy appearing HENMT: COMMON NORMALS: normocephalic and atraumatic HEAD & SCALP: normocephalic and atraumatic Eye: COMMON NORMALS: Equal, round and reactive pupils present and EOMs intact bilaterally PUPIL: Yes Equal, round and reactive pupils present Neck/C-Spine: COMMON NORMALS: full ROM and supple Chest: COMMONS NORMALS: normal inspection of the chest and normal palpation of entire chest wall Resp: COMMON NORMALS: normal respiratory effort, No retractions, No use of accessory muscles and clear to auscultation bilaterally AUSCULTATION: clear to auscultation bilaterally Cardio: COMMON NORMALS: regular rate, regular rhythm and No murmurs present (Cardio) RATE: regular rate RHYTHM: regular rhythm GI: COMMON NORMALS: Normal to inspection, nondistended, normoactive bowel sounds present, Soft to palpation and no masses PALPATION: Yes Soft to palpation and Yes Tenderness to palpation present (GI) (diffuse) Extremity: COMMON NORMALS: normal to inspection and full ROM Neuro: COMMON NORMALS: patient oriented x3, moves all extremities and no focal motor deficits Psych: COMMON NORMALS: mental status grossly normal, Normal thought process present and cooperative THOUGHT PROCESS: Normal thought process present Skin: COMMON NORMALS: no rashes or lesions noted and no wounds GENERAL SKIN EXAM: no rashes or lesions noted Course Vital Signs: Vital signs: Vital Signs Temperature 97.4 F L 12/03/21 16:45 Pulse Rate 78 12/03/21 19:08 Respiratory Rate 19 H 12/03/21 19:08 Blood Pressure 147/92 12/03/21 19:08 Pulse Oximetry 97 12/03/21 19:08 MDM - Abdominal Pain Medical Decision Making Patient presents here with abdominal pain along with vomiting slight hematemesis likely Zoey-Corrales tear she feels improved here after Zofran chest x-ray CT abdomen blood work is all normal she is stable for discharge we will prescribe her Zofran she is to follow-up with her PCP and return if worsening she understands agrees to plan. Lab Data : 12/03/21 17:39 12/03/21 17:09 Labs/Radiology: Radiology Impressions Abdomen/Pelvis CT 12/03/21 18:13 IMPRESSION: 1. Prominent fluid in the small bowel along with some areas of wall thickening especially in the left abdomen concerning for an enteritis in the appropriate clinical setting. 2. Cholecystectomy. Chest X-Ray 12/03/21 19:34 IMPRESSION: No acute findings. Laboratory Results WBC 4.1 10^3/uL (4.0-10.0) 12/03/21 17:39 Corrected WBC Cancelled 12/03/21 17:09 RBC 5.00 10^6/uL (4.1-5.3) 12/03/21 17:39 Hgb 15.1 g/dL (11.5-15.3) 12/03/21 17:39 Hct 44.5 % (37.0-47.0) 12/03/21 17:39 MCV 89.0 fl (81-99) 12/03/21 17:39 MCH 30.2 pg (28.0-34.0) 12/03/21 17:39 MCHC 33.9 g/dL (30.0-36.0) 12/03/21 17:39 RDW 11.6 % (12.1-15.1) L 12/03/21 17:39 Plt Count 155 10^3/cmm (130-400) 12/03/21 17:39 MPV 11.5 fL (7.4-10.4) H 12/03/21 17:39 Gran % Cancelled 12/03/21 17:09 Neut % (Auto) Cancelled 12/03/21 17:09 Lymph % (Auto) Not Reportable 12/03/21 17:39 [place] % (Auto) Not Reportable 12/03/21 17:39 Eos % (Auto) Cancelled 12/03/21 17:09 Baso % (Auto) Cancelled 12/03/21 17:09 Neut # (Auto) Cancelled 12/03/21 17:09 Lymph # (Auto) Not Reportable 12/03/21 17:39 [place] # (Auto) Not Reportable 12/03/21 17:39 Eos # (Auto) Cancelled 12/03/21 17:09 Baso # (Auto) Cancelled 12/03/21 17:09 Absolute Gran (auto) Cancelled 12/03/21 17:09 Nucleated RBC % (auto) Cancelled 12/03/21 17:09 Total Counted 100 (0-100) 12/03/21 17:39 Atypical Lymphs % 4.0 % (0-5) 12/03/21 17:39 Absolute Neutrophils 2.1 10^3/cmm (1.4-6.5) 12/03/21 17:39 Segmented Neutrophils 44 % 12/03/21 17:39 Abs Segm Neuts (Man) 1.8 10/cmm (1.6-7.1) 12/03/21 17:39 Band Neutrophils 6.0 % 12/03/21 17:39 Abs Band Neuts (Man) 0.2 10^3/cmm (0.0-1.2) 12/03/21 17:39 Absolute Lymphocytes 1.7 10^3/cmm (1.2-3.4) 12/03/21 17:39 Lymphocytes (Manual) 37 % 12/03/21 17:39 Monocytes (Manual) 4.0 % 12/03/21 17:39 Absolute Monocytes 0.2 10^3/cmm (0.1-0.6) 12/03/21 17:39 Eosinophils (Manual) 5 % 12/03/21 17:39 Absolute Eosinophils 0.2 10^3/cmm (0.0-0.7) 12/03/21 17:39 Basophils (Manual) Not Reportable 12/03/21 17:39 Nucleated RBCs # Cancelled 12/03/21 17:09 Platelet Estimate Normal (Normal) 12/03/21 17:39 Giant Platelets 1+ H 12/03/21 17:39 Sodium 138 mmol/L (136-145) 12/03/21 17:09 Potassium 3.9 mmol/L (3.5-5.1) 12/03/21 17:09 Chloride 104 mmol/L (98-107) 12/03/21 17:09 Carbon Dioxide 21 mmol/L (22-29) L 12/03/21 17:09 Anion Gap 16.9 (5-19) 12/03/21 17:09 BUN 13 mg/dL (6-20) 12/03/21 17:09 Creatinine 0.7 mg/dL (0.5-0.9) 12/03/21 17:09 GFR Calculation 97.6 mL/min (90-130) 12/03/21 17:09 Glucose 87 mg/dL (65-115) 12/03/21 17:09 Calculated Osmolality 285 mOsm/kg (285-295) 12/03/21 17:09 Calcium 9.1 mg/dL (8.5-10.5) 12/03/21 17:09 Total Bilirubin 0.3 mg/dL (0.15-1.2) 12/03/21 17:09 AST 16 U/L (0-32) 12/03/21 17:09 ALT 13 U/L (0-33) 12/03/21 17:09 Alkaline Phosphatase 77 IU/L (35-105) 12/03/21 17:09 Total Protein 6.2 g/dL (6.6-8.7) L 12/03/21 17:09 Albumin 4.4 g/dL (3.5-5.2) 12/03/21 17:09 Globulin 1.8 g/dL (1.3-4.6) 12/03/21 17:09 Lipase 25 U/L (13-60) 12/03/21 17:09 HCG, Qual Negative (Negative) 12/03/21 17:09 Urine Color Yellow (Yellow) 12/03/21 17:09 Urine Appearance Clear (CLEAR) 12/03/21 17:09 Urine pH 5 (5-7) 12/03/21 17:09 Ur Specific [place] 1.020 (1.005-1.030) 12/03/21 17:09 Urine Protein Trace (Negative) 12/03/21 17:09 Urine Glucose (UA) Norm (Normal) 12/03/21 17:09 Urine Ketones 1+ (Negative) H 12/03/21 17:09 Urine Blood Neg (Negative) 12/03/21 17:09 Urine Nitrate Negative (Negative) 12/03/21 17:09 Urine Bilirubin 1+ (Negative) H 12/03/21 17:09 Urine Urobilinogen 1 mg/dL (Negative) H 12/03/21 17:09 Ur Leukocyte Esterase Trace (Negative) H 12/03/21 17:09 Urine RBC 0-4 /hpf (0-2) H 12/03/21 17:09 Urine WBC 0-4 /hpf (0-5) H 12/03/21 17:09 Ur Squamous Epith Cells 40-55 /hpf (0-5) H 12/03/21 17:09 Amorphous Sediment Not Reportable 12/03/21 17:09 Urine Bacteria Trace /hpf (NONE) 12/03/21 17:09 Urine Mucus 2+ /hpf 12/03/21 17:09 EKG Data EKG 1: I personally reviewed and interpreted this EKG as follows: EKG interpretation date: 12/03/21 EKG interpretation time: 19:35 Interpretation: nsr hr [address] or t wave abnormalities qrs 77 qtc 399 Discharge Plan Discharge Patient Disposition: Home Clinical Impression: Abdominal pain Qualifiers: Abdominal location: generalized Qualified Code(s): R10.84 - Generalized abdominal pain Vomiting Qualifiers: Vomiting type: unspecified Nausea presence: with nausea Qualified Code(s): R11.2 - Nausea with vomiting, unspecified Condition: Stable Prescriptions: New ondansetron 4 mg tablet,disintegrating 4 mg PO Q6H PRN (Reason: nausea and vomiting) Qty: 14 0RF No Action pantoprazole [Protonix] 40 mg tablet,delayed release (DR/EC) 40 mg PO DAILY 30 Days Qty: 30 2RF ondansetron HCl [Zofran] 4 mg tablet 4 mg PO Q6H PRN (Reason: nausea and vomiting) Qty: 30 1RF sucralfate [Carafate] 1 gram tablet 1 g PO Q8H 30 Days Qty: 90 2RF mupirocin 2 % ointment 1 applic topical TID Qty: 22 0RF Rx Instructions: to face until healed fluoxetine [Prozac] 20 mg Capsule 20 mg PO DAILY 0RF cyclobenzaprine 10 mg tablet 10 mg PO TID PRN (Reason: muscle spasm) Qty: 30 1RF hydroxyzine HCl 25 mg tablet 25 mg PO Q8H PRN (Reason: anxiety) Qty: 14 0RF aripiprazole [Abilify] 2 mg Tablet 2 mg PO DAILY 0RF Discharge Orders: Discharge ED (Routine); Ordered 12/03/21 Ordered By: Constanza Miller Referrals: Colette Barroso DO [Primary Care Provider] - 1-3 days Discharge Diet: Advance as tolerated Discharge Activity: Resume usual activity Patient Instructions: Abdominal Pain (ED) Coding Level of Care Code ED Yarn Texturing Machine Operator for Chg Fwd Exam Comprehensive
[2021-12-03 18:49] LABS: Absolute Eosinophils 0.2 10^3/cmm (0.0-0.7); Absolute Neutrophil 2.1 10^3/cmm (1.4-6.5); Absolute Segmented Neutrophil 1.8 10/cmm (1.6-7.1); Band Neutrophils Absolute 0.2 10^3/cmm (0.0-1.2); Eosinophils 5 %; Lymphocytes 37 %; Lymphocytes Absolute 1.7 10^3/cmm (1.2-3.4); Monocytes Absolute 0.2 10^3/cmm (0.1-0.6); Platelet Estimate Normal (Normal); Segmented Neutrophils 44 %; Total Cells Counted 100 (0-100)
[2021-12-03 18:50] LABS: Giant Platelets 1+
[2021-12-03] MEDS: ondansetron 2 mg/ML SDV 2 mL 4 MG IVP (18:50)
[2021-12-03] MEDS: sodium chloride 0.9% 1,000 ML 999 ML IV (18:51)
[2021-12-03 18:57] VITALS: RESP 16; O2SAT 98
[2021-12-03] MEDS: morphine 4 mg/mL SDV 1 mL 2 MG IVP (18:57)
--- NOTE | 2021-12-03 18:59 | PC.NURSE ---
Malu gave 2mg of morphine per patient request, wasted 2mg witnessed by Nicky WILLETT.
--- NOTE | 2021-12-03 19:00 | PC.NURSE ---
TAMIE Saunders witnessed waste of 2mg morphine. PT requested to only receive half of the 4mg dose
[2021-12-03 19:08] VITALS: BP 147/92; PULSE 78; RESP 19; O2SAT 97
[2021-12-03 19:30] VITALS: BP 130/98; PULSE 86; RESP 17; O2SAT 98
--- NOTE | 2021-12-03 19:34 | ECG_ITS ---
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 Measurements Intervals [place] Rate: 57 P: 58 [place]: 150 QRS: 52 QRSD: 84 T: 41 QT: 413 QTc: 403 Interpretive Statements SINUS BRADYCARDIA WITH SINUS ARRHYTHMIA LOW QRS VOLTAGE IN PRECORDIAL LEADS [QRS DEFLECTION < 1.0 mV IN CHEST LEADS] No previous ECG available for comparison Electronically Signed On 12-03-2021 19:50:57 CDT by Urban Penny M.D. [id number]
--- NOTE | 2021-12-03 19:34 | XRR_ITS ---
PROCEDURE INFORMATION: Exam: XR Chest Exam date and time: 12/03/2021 8:04 PM Age: 31 years old Clinical indication: Chest wall pain; Additional info: Cp TECHNIQUE: Imaging protocol: XR of the chest. Views: 1 view. COMPARISON: CR XR chest 1V portable [id number] 05/09/2021 8:34 AM FINDINGS: Lungs: Unremarkable. No consolidation. Pleural spaces: Unremarkable. No pleural effusion. No pneumothorax. Heart/Mediastinum: Unremarkable. No cardiomegaly. Bones/joints: Unremarkable. XR/XR chest 1V portable [id number] IMPRESSION: No acute findings.
[2021-12-03] MEDS: LORazepam 2 mg/mL INJ 1 mL 1 MG IVP (19:39)
[2021-12-03 20:00] VITALS: BP 100/73; PULSE 66; RESP 15; O2SAT 97
[2021-12-03 20:42] VITALS: BP 92/60; PULSE 62; RESP 16; O2SAT 99
== END 2021-12-03 20:35 | disposition home or self-care (01) ==
PROVIDERS: Emergency Medicine; Emergency Provider Emergency Medicine; PCP Family Medicine
DX: R10.84 Generalized abdominal pain (principal); R11.2 Nausea with vomiting, unspecified
CPT/HCPCS: 36415; 71045; 74176; 80053; 81001; 83690; 84703; 85007; 85025; 93005; 96361; 96374; 96375; 99284; J2060; J2270; J2405; J7030

== ENCOUNTER → 2022-06-30 14:44 | Outpatient (BNVA) | payer MEDICAID, SELFPAY | PROVIDERS: PCP Family Medicine; Visit Provider Nurse Practitioner Family | DX: M25.532 Pain in left wrist (principal); M79.642 Pain in left hand | CPT/HCPCS: 73110; 73130 ==

== ENCOUNTER 2023-01-13 09:07 | Emergency (ER) | payer MEDICAID, SELFPAY ==
[2023-01-13 09:14] VITALS: BMI 28.1
[2023-01-13 09:16] VITALS: BP 116/88; PULSE 70; RESP 16; TEMP 36.3; O2SAT 97
--- NOTE | 2023-01-13 09:27 | W.ED.ABDPA2 ---
HPI - Abdominal Pain General: Chief Complaint: Abdominal Pain Stated Complaint: Lower abd pain, Burnning stabbing pain Time Seen by Provider: 01/13/23 09:19 Source: patient Mode of arrival: ambulatory Limitations: no limitations History of Present Illness: Patient is a 32-year-old female presents to ED today with complaint of right lower abdominal pain/pelvic pain. She states she first noticed discomforts about 2 weeks ago but she states pain was tolerable. She states over the past 48 hours it has become excruciating. She states she is nauseous secondary to the discomfort. She is status post hysterectomy for endometriosis. She states she does have a history of ovarian cyst but states nothing has been this severe in discomfort before. She denies urinary symptoms. No flank pain. She is having normal bowel movements. She has not had any episodes of emesis. No fevers. Denies vaginal bleeding or vaginal discharge. MD elicited complaint: abdominal pain and other (pelvic pain) Pertinent past history: none Onset (ago): day(s) Pain Consistency: constant Location: RLQ and Pelvis Severity: severe Quality: stabbing and burning Radiation: none Migration to: no migration Exacerbating factors: nothing Relieving factors: nothing Associated Symptoms: Reports nausea; Denies change in bowel habits, chills, diarrhea, dysuria, fever(s), hematuria and vomiting Related Data: Patient : No Review of Systems Const: Denies: fever(s), chills, body aches, fatigue or malaise Card: Denies: chest pain Resp: Denies: dyspnea GI: Reports: abdominal pain and nausea; Denies: vomiting, diarrhea or change in bowel habits : Reports: pelvic pain; Denies: flank pain, difficulty voiding, dysuria, urinary frequency, urinary urgency, urinary hesitancy, hematuria, genital lesions, genital pruritis, vaginal odor, vaginal bleeding or vaginal discharge Musc: Denies: neck pain, back pain, extremity pain or joint pain Skin/Breast: Denies: rash Neuro: Denies: headache(s), numbness in extremities, weakness in extremities, sensory changes, difficulty walking or dizziness [facility] ED PFSH: Medical History Abdominal distension delivery delivered Chronic cholecystitis Chronic diarrhea Colon polyp Epigastric pain Psychiatric care Surgical History H/O total hysterectomy History of breast lump removal left History of endometrial ablation History of meniscectomy of right knee History of tonsillectomy History of tubal ligation Family History Father Anesthesia complication Cancer Hypertension Grandmother Chronic kidney disease (CKD) Dementia Grandfather Dementia Denies family history of Diabetes CAD (coronary artery disease) Clotting disorder Hyperlipidemia Psychiatric illness Suicide Bleeding disorder Family history of premature coronary artery disease Lung disease Stroke Social History Smoking and tobacco status: current every day smoker Physical Exam Const: COMMON NORMALS: average body habitus, patient oriented x3, no limitations, healthy appearing, alert and well nourished GENERAL APPEARANCE: cooperative and in distress (appears uncomfortable secondary to pain) Eye: COMMON NORMALS: no scleral icterus Resp: COMMON NORMALS: normal respiratory effort and clear to auscultation bilaterally AUSCULTATION: clear to auscultation bilaterally Cardio: COMMON NORMALS: regular rate and regular rhythm RATE: regular rate RHYTHM: regular rhythm GI: COMMON NORMALS: Normal to inspection, nondistended, normoactive bowel sounds present, Soft to palpation, No hepatosplenomegaly present and no masses INSPECTION: Yes normal to inspection AUSCULTATION: Yes normoactive bowel sounds PALPATION: Yes Soft to palpation, Yes Tenderness to palpation present (GI) (tender throughout RUQ and lower abdomen but max tenderness is R pelvis), Yes Guarding due to palpation present (GI) and Yes No hepatosplenomegaly present : COMMON NORMALS: Yes no CVA tenderness BLADDER/KIDNEY EXAM: Yes no CVA tenderness Back/Pelvis: COMMON NORMALS: no CVA tenderness, thoracic and lumbar spine normal to inspection and no thoracic nor lumbar tenderness Extremity: COMMON NORMALS: normal to inspection GENERAL: Yes normal exam except as noted Neuro: KELSEY COMA SCALE: document GCS findings Hayes coma scale eye opening: Spontaneous Hayes coma scale verbal response: Orientated Hayes coma scale motor response: Obey commands Kelsey coma scale total score: 15 COMMON NORMALS: patient oriented x3, moves all extremities, no focal motor deficits, no sensory deficits noted and gait normal SENSORIUM/ORIENTATION: Yes alert Skin: COMMON NORMALS: no rashes or lesions noted GENERAL SKIN EXAM: no rashes or lesions noted Course Vital Signs: Vital signs: Vital Signs Temperature 97.4 F L 01/13/23 09:16 Pulse Rate 55 L 01/13/23 12:32 Respiratory Rate 16 01/13/23 12:32 Blood Pressure 103/63 01/13/23 12:32 Pulse Oximetry 97 01/13/23 12:32 Oxygen Delivery Me thod Room Air 01/13/23 09:16 MDM - Abdominal Pain Medical Decision Making Patient here with right-sided abdominal/pelvic pain over the past few weeks significantly worse over the past 48 hours. Accompanied by nausea without episodes of emesis. Patient otherwise asymptomatic. On exam patient did appear more tender to the right pelvis thus transvaginal ultrasound imaging was initially obtained. They visualize patient's left ovary but unfortunately right ovary was obscured with overlying bowel gas. CT abdomen and pelvis was then obtained which shows no acute findings apart from moderate retained stool in the right half of the large bowel. Ultrasound on CT imaging appeared normal however this does not definitively rule out an ovarian torsion. I discussed with ultrasound again stated they could try transabdominally. With this method we were able to see the right ovary and flow was confirmed. Patient's blood work is completely benign. Her UA is clear. Pain was treated successfully here. Patient will be sent home with pain and nausea meds. Precautions given in regards to the pain meds as they can worsen constipation. Recommend she start taking Colace twice daily as well as a capful of MiraLAX twice daily to help alleviate gas and constipation. Strict return ED precautions given which patient verbalized understanding of. Lab Data 01/13/23 09:31 01/13/23 09:31 Labs/Radiology: Radiology Impressions Transvaginal US 01/13/23 09:28 IMPRESSION: 1. Prior hysterectomy. 2. Normal valuation left ovary. 3. Nonvisualization of the right ovary. Abdomen/Pelvis CT 01/13/23 10:07 IMPRESSION: 1. No acute findings within the abdomen or pelvis. 2. Moderate degree of retained stool right half of the large bowel. Please correlate for constipation. 3. Prior cholecystectomy with mild associated dilatation of the biliary system. Pelvis Ultrasound 01/13/23 11:00 IMPRESSION: 1. Prior hysterectomy. 2. RIGHT ovary is normal in appearance. No evidence of torsion. Normal blood flow RIGHT ovary 3. LEFT ovary is normal. 4. Dominant LEFT ovarian follicle measuring 10 x 10 x 12 mm Laboratory Results WBC 7.8 10^3/uL (4.0-10.0) 01/13/23 09: RBC 4.72 10^6/uL (4.1-5.3) 01/13/23 09:31 Hgb 14.2 g/dL (11.5-15.3) 01/13/23 09: Hct 42.5 % (37.0-47.0) 01/13/23 09: MCV 90.0 fl (81-99) 01/13/23 09: MCH 30.1 pg (28.0-34.0) 01/13/23 09: MCHC 33.4 g/dL (30.0-36.0) 01/13/23 09: RDW 11.6 % (12.1-15.1) L 01/13/23 09: Plt Count 194 10^3/cmm (130-400) 01/13/23 09: MPV 10.8 fL (7.4-10.4) H 01/13/23 09:31 Neut % (Auto) 65.1 % 01/13/23 09:31 Lymph % (Auto) 26.4 % 01/13/23 09:31 [place] % (Auto) 6.1 % 01/13/23 09: Eos % (Auto) 1.5 % 01/13/23 09: Baso % (Auto) 0.6 % 01/13/23 09: Neut # (Auto) 5.05 10^3/uL (1.8-7.7) 01/13/23 09: Lymph # (Auto) 2.1 10^3/uL (0.8-4.8) 01/13/23 09:31 [place] # (Auto) 0.5 10^3/uL (0.2-0.9) 01/13/23 09: Eos # (Auto) 0.1 10^3/uL (0.0-0.8) 01/13/23 09: Baso # (Auto) 0.1 10^3/uL (0.0-0.1) 01/13/23 09: Nucleated RBC % (auto) 0 % 01/13/23 09:31 Nucleated RBCs # 0.0 /100WBC 01/13/23 09:31 Sodium 141 mmol/L (136-145) 01/13/23 09:31 Potassium 4.2 mmol/L (3.5-5.1) 01/13/23 09:31 Chloride 106 mmol/L (98-107) 01/13/23 09:31 Carbon Dioxide 23 mmol/L (22-29) 01/13/23 09:31 Anion Gap 16.2 (5-19) 01/13/23 09:31 BUN 16 mg/dL (6-20) 01/13/23 09:31 Creatinine 0.7 mg/dL (0.5-0.9) 01/13/23 09:31 GFR Calculation 97.0 mL/min (90-130) 01/13/23 09:31 Glucose 100 mg/dL (65-115) 01/13/23 09:31 Calculated Osmolality 293 mOsm/kg (285-295) 01/13/23 09:31 Calcium 9.1 mg/dL (8.5-10.5) 01/13/23 09:31 Total Bilirubin 0.3 mg/dL (0.15-1.2) 01/13/23 09:31 AST 16 U/L (0-32) 01/13/23 09:31 ALT 21 U/L (0-33) 01/13/23 09:31 Alkaline Phosphatase 72 U/L (35-105) 01/13/23 09:31 Total Protein 6.7 g/dL (6.6-8.7) 01/13/23 09:31 Albumin 4.5 g/dL (3.5-5.2) 01/13/23 09:31 Globulin 2.2 g/dL (1.3-4.6) 01/13/23 09:31 Urine Color Light yellow (Yellow) 01/13/23 09:43 Urine Appearance Clear (CLEAR) 01/13/23 09:43 Urine pH 7 (5-7) 01/13/23 09:43 Ur Specific [place] 1.010 (1.005-1.030) 01/13/23 09:43 Urine Protein Neg (Negative) 01/13/23 09:43 Urine Glucose (UA) Norm (Normal) 01/13/23 09:43 Urine Ketones Negative (Negative) 01/13/23 09:43 Urine Blood Neg (Negative) 01/13/23 09:43 Urine Nitrate Negative (Negative) 01/13/23 09:43 Urine Bilirubin Neg (Negative) 01/13/23 09:43 Urine Urobilinogen Norm mg/dL (Negative) 01/13/23 09:43 Ur Leukocyte Esterase Negative (Negative) 01/13/23 09:43 Discharge Plan Discharge Patient Disposition: Home Clinical Impression: Right sided abdominal pain Constipation Qualifiers: Constipation type: other constipation type Qualified Code(s): K59.09 - Other constipation Condition: Stable Prescriptions: New hydrocodone-acetaminophen 5-325 mg tablet 1 tab PO Q6H PRN (Reason: pain) Qty: 14 0RF ondansetron 4 mg tablet,disintegrating 4 mg PO Q8H PRN (Reason: nausea and vomiting) Qty: 14 0RF No Action buspirone 5 mg tablet 5 mg PO TID 30 Days Qty: 90 3RF clonazepam 0.5 mg tablet 0.25 mg PO DAILY PRN (Reason: anxiety) 30 Days Qty: 15 3RF famotidine 20 mg tablet 20 mg PO TID Excedrin Extra Strength 250-250-65 mg Tablet 2 tab PO Q6H PRN (Reason: Pain) fluoxetine 20 mg capsule 60 mg PO QAM Discharge Orders: Discharge ED (Routine); Ordered 01/13/23 Ordered By: Tess Smith Referrals: Colette Barroso DO [Primary Care Provider] - Patient Instructions: Abdominal Pain (ED), Opioid Safety, Pain Management Coding Level of Care Code ED [place] [place] Manager for Linog Evelyn
--- NOTE | 2023-01-13 09:28 | USR_ITS ---
PROCEDURE INFORMATION: Exam: US Pelvis, Transvaginal Exam date and time: 01/13/2023 9:47 AM Age: 32 years old Clinical indication: Pelvic pain; Additional info: R pelvic pain TECHNIQUE: Imaging protocol: Real-time transvaginal pelvic ultrasound with image documentation. Transvaginal imaging was used for better evaluation of the endometrium, adnexa, and/or cervix. COMPARISON: US transvaginal [id number] 03/04/2018 8:51 PM FINDINGS: Uterus has been removed. No mass or free fluid seen in the cul-de-sac. Left ovary is unremarkable in size measuring 2.9 x 2.0 x 1.2 cm. 1 cm follicular cyst incidentally noted. No adnexal mass. Normal Doppler flow. Right ovary cannot be visualized in part due to obscuring bowel gas. No adnexal mass detected. US/US transvaginal [id number] IMPRESSION: 1. Prior hysterectomy. 2. Normal valuation left ovary. 3. Nonvisualization of the right ovary.
--- NOTE | 2023-01-13 09:38 | PC.PHAR ---
pt states she takes care of her own medications-pt states she takes famotidine 20mg tid rx filled 12/18/22 30d/s 20mg bid-
[2023-01-13 09:39] LABS: Basophils # 0.1 10^3/uL (0.0-0.1); Basophils % 0.6 %; Eosinophils # 0.1 10^3/uL (0.0-0.8); Eosinophils % 1.5 %; Hematocrit 42.5 % (37.0-47.0); Hemoglobin 14.2 g/dL (11.5-15.3); Lymphocytes # 2.1 10^3/uL (0.8-4.8); Lymphocytes % 26.4 %; Mean Corpuscular HGB Conc 33.4 g/dL (30.0-36.0); Mean Corpuscular Hemoglobin 30.1 pg (28.0-34.0); Mean Platelet Volume 10.8 fL (7.4-10.4); Monocytes # 0.5 10^3/uL (0.2-0.9); Monocytes % 6.1 %; Neutrophils # 5.05 10^3/uL (1.8-7.7); Neutrophils % 65.1 %; Nucleated Red Blood Cells % 0 %; Platelet Count 194 10^3/cmm (130-400); Red Blood Count 4.72 10^6/uL (4.1-5.3); Red Cell Distribution Width 11.6 % (12.1-15.1); White Blood Count 7.8 10^3/uL (4.0-10.0)
[2023-01-13] MEDS: ondansetron 2 mg/ML SDV 2 mL 4 MG IVP (09:43)
[2023-01-13] MEDS: morphine 4 mg/mL SDV 1 mL IVP (09:43)
[2023-01-13 09:59] LABS: Alanine Aminotransferase 21 U/L (0-33); Albumin Level 4.5 g/dL (3.5-5.2); Alkaline Phosphatase 72 U/L (35-105); Anion Gap 16.2 (5-19); Aspartate Amino Transferase 16 U/L (0-32); Blood Urea Nitrogen 16 mg/dL (6-20); Calcium 9.1 mg/dL (8.5-10.5); Carbon Dioxide 23 mmol/L (22-29); Chloride 106 mmol/L (98-107); Globulin 2.2 g/dL (1.3-4.6); Glucose 100 mg/dL (65-115); Osmolality Calculated 293 mOsm/kg (285-295); Potassium 4.2 mmol/L (3.5-5.1); Sodium 141 mmol/L (136-145); Total Bilirubin 0.3 mg/dL (0.15-1.2); Total Protein 6.7 g/dL (6.6-8.7)
[2023-01-13 09:59] LABS: Add Urine Microscopic? NO; Charge for UA Resulting for Rev
--- NOTE | 2023-01-13 10:07 | CTR_ITS ---
PROCEDURE INFORMATION: Exam: CT Abdomen And Pelvis With Contrast Exam date and time: 01/13/2023 10:18 AM Age: 32 years old Clinical indication: Abdominal tenderness; Prior surgery; Surgery date: Post-operative (0-2 days); Surgery type: Gb, hyst; Additional info: R abdominal/pelvic pain, tv US could not visualize R ovary TECHNIQUE: Imaging protocol: Computed tomography of the abdomen and pelvis with contrast. Radiation optimization: All CT scans at this facility use at least one of these dose optimization techniques: automated exposure control; mA and/or kV adjustment per patient size (includes targeted exams where dose is matched to clinical indication); or iterative reconstruction. Contrast material: OMNI 350; Contrast volume: 100 ml; Contrast route: INTRAVENOUS (IV); REPORTING DATA: Count of CT and Cardiac NM exams in prior 12 months: This patient has received 0 known CTs and 0 known cardiac nuclear medicine studies in the 12 months prior to the current study. COMPARISON: CT abdomen pelvis wo con [id number] 12/03/2021 7:05 PM RADIATION DOSE METRICS: Total DLP (mGy-cm): 416.88 FINDINGS: Lungs: Lung bases are clear. Liver: Liver is unremarkable. No mass or enlargement detected. Gallbladder and bile ducts: Gallbladder has been removed. There is mild associated dilatation of the the bile ducts unchanged. Pancreas: Unremarkable. Main pancreatic duct is not significantly dilated. Spleen: Normal. No splenomegaly. Adrenal glands: Normal. No mass. Kidneys and ureters: TheKidneys are unremarkable. No calculi or hydronephrosis detected. Stomach and bowel: Right half of the large bowel is a mildly distended with retained stool. Remainder of the GI tract is unremarkable. Appendix: No evidence of appendicitis. Intraperitoneal space: Unremarkable. No free air. No significant fluid collection. Vasculature: Unremarkable. No abdominal aortic aneurysm. Lymph nodes: Unremarkable. No enlarged lymph nodes. Urinary bladder: Unremarkable as visualized. Reproductive: uterus has been removed. Ovaries are unremarkable. Bones/joints: Unremarkable. No acute fracture. Soft tissues: Unremarkable. CT/CT abdomen pelvis w con* [id number] IMPRESSION: 1. No acute findings within the abdomen or pelvis. 2. Moderate degree of retained stool right half of the large bowel. Please correlate for constipation. 3. Prior cholecystectomy with mild associated dilatation of the biliary system.
[2023-01-13] MEDS: iohexol 350 mg/mL 500 mL Btl (per mL) IV (10:16)
[2023-01-13 10:19] LABS: Bilirubin Urine Neg (Negative); Blood Urine Neg (Negative); Glucose Urine UA Norm (Normal); Ketones Urine Negative (Negative); Leukocyte Esterase Urine Negative (Negative); Nitrate Urine Negative (Negative); Protein Urine Neg (Negative); Urine Appearance Clear (CLEAR); Urine Color Light yellow (Yellow); Urobilinogen Urine Norm (Negative); pH Urine 7 (5-7)
--- NOTE | 2023-01-13 11:00 | US_ITS ---
WS: [id number] ULTRASOUND PELVIS TECHNIQUE: Transabdominal. CLINICAL INFORMATION: need to confirm flow to R ovary COMPARISON: Ultrasound earlier today FINDINGS: Uterus Prior hysterectomy Adnexa: Dominant LEFT ovarian follicle measuring 10 x 10 x 12 mm. Normal blood flow to the RIGHT ovar y. RIGHT ovary somewhat difficult to visualize due to surrounding bowel. Right ovary size: 2.0 cm x 1.8 cm x 2.3 cm. Right ovary volume: 4.5 ccm3 Left ovary size: 2.2 cm x 1.9 cm x 1.5 cm. Left ovary volume: 3.4 ccm3 Free fluid: None. Other findings: None. US/US pelvic limited [id number] IMPRESSION: 1. Prior hysterectomy. 2. RIGHT ovary is normal in appearance. No evidence of torsion. Normal blood f low RIGHT ovary 3. LEFT ovary is normal. 4. Dominant LEFT ovarian follicle measuring 10 x 10 x 12 mm
[2023-01-13] MEDS: ketorolac 30 mg/mL INJ 15 MG IVP (11:05)
[2023-01-13] MEDS: HYDROmorphone 1 mg/mL INJ 1 mL 0.5 MG IVP (11:05)
[2023-01-13] MEDS: metoclopramide 5 mg/mL SDV 2 mL 10 MG IVP (11:10)
[2023-01-13] MEDS: LORazepam 2 mg/mL INJ 1 mL 0.5 MG IVP (11:30)
[2023-01-13 12:32] VITALS: BP 103/63; PULSE 55; RESP 16; O2SAT 97
[2023-01-13 12:42] VITALS: BP 103/63; PULSE 63; RESP 16; TEMP 36.3; O2SAT 97
== END 2023-01-13 12:43 | disposition home or self-care (01) ==
PROVIDERS: Emergency Provider Physician Assistant; PCP Family Medicine
DX: K59.09 Other constipation (principal); F17.200 Nicotine dependence, unspecified, uncomplicated; Z79.899 Other long term (current) drug therapy
CPT/HCPCS: 74177; 76830; 76857; 80053; 81003; 85025; 96374; 96375; 99285; J1170; J1885; J2060; J2270; J2405; J2765; Q9967

== ENCOUNTER 2023-02-01 09:04 | Outpatient (CLI) | payer MEDICAID, SELFPAY ==
--- NOTE | 2023-02-01 09:19 | XRR_ITS ---
PROCEDURE INFORMATION: Exam: XR Right Knee Exam date and time: 02/01/2023 9:27 AM Age: 32 years old Clinical indication: Pain; Knee; Right; Additional info: Pain in R knee TECHNIQUE: Imaging protocol: Radiologic exam of the right knee. Views: 3 views. COMPARISON: No relevant prior studies available. FINDINGS: Bones/joints: The medial joint space is well maintained. The lateral joint space is well maintained. No fracture identified. Soft tissues: No knee joint effusion is present. XR/XR knee RT 3V* [id number] IMPRESSION: No evidence of acute fracture or dislocation.
== END 2023-02-01 09:05 | disposition home or self-care (01) ==
PROVIDERS: PCP Family Medicine; Visit Provider Family Medicine
DX: M25.561 Pain in right knee (principal)
CPT/HCPCS: 73562

== ENCOUNTER → 2023-04-22 10:46 | Outpatient (BNVA) | payer MEDICAID, SELFPAY | PROVIDERS: PCP Family Medicine; Referring Provider Family Medicine; Visit Provider Student in an Organized Health Care Education/Training Program | DX: S83.8X1A Sprain of other specified parts of right knee, initial encounter; X58.XXXA Exposure to other specified factors, initial encounter | CPT/HCPCS: 73560; 73565 ==

== ENCOUNTER 2024-02-22 08:27 | Emergency (ER) | payer OTHER, SELFPAY ==
[2024-02-22 08:37] VITALS: BP 138/107; PULSE 99; RESP 18; TEMP 36.7; O2SAT 100; BMI 30.2
--- NOTE | 2024-02-22 09:01 | W.ED.HA ---
HPI - Headache General: Chief Complaint: Headache Stated Complaint: left eye loss vision, severe headache of sneeze Time Seen by Provider: 02/22/24 08:39 Source: patient Mode of arrival: ambulatory Limitations: no limitations History of Present Illness: Patient is a 33-year-old female who presents to ED today with a complaint of severe left-sided headache that began abruptly just prior to arrival after she sneezed. Patient states the second I sneezed I felt something exploding in the left side of my head . She states she also began getting blurry vision to the left eye. She has not had any visual loss. She is currently rating her headache at a 12/10. She states since onset she has had nausea and vomiting. She states she does have a history of migraine headaches but this is completely different . MD elicited complaint: headache Onset (ago): hour(s) Onset description: suddenly Location: left, frontal, temporal and retro-orbital Severity: severe Pain scale (0-10): 12 Quality & Timing: constant and other ( exploding ) Exacerbating factors: sitting/standing and light Relieving factors: nothing Context: other (occurred abruptly after sneezing) Associated symptoms: Reports nausea and vomiting; Deny chest pain, confusion, fever(s), malaise or rash Treatments prior to arrival: none Related Data Home Medications Medication Instructions Recorded Confirmed [id number] 250 2 tab PO Q6H PRN Pain 01/13/23 02/22/24 mg-250 mg-65 mg tablet (Excedrin Extra Strength) ibuprofen 200 mg capsule 200 mg PO Q6H PRN Pain 04/22/23 02/22/24 Jose Aminobutyric Acid 750 mg PO DAILY 02/22/24 02/22/24 magnesium 250 mg tablet 250 mg PO DAILY 02/22/24 02/22/24 Allergies Allergy/AdvReac Type Severity Reaction Status Date / Time diphenhydramine Allergy RASH Verified 05/04/23 09:25 [From Benadryl] Penicillins Allergy RASH Verified 05/04/23 09:25 Sulfa (Sulfonamide Allergy RASH Verified 05/04/23 09:25 Antibiotics) tioconazole Allergy ALGY-Rash Verified 05/04/23 09:25 [From Monistat 1 (tioconazole)] Review of Systems Const: Denies: fever(s), chills, body aches, fatigue or malaise Eyes: Reports: change in vision and blurry vision; Denies: blind spots, floaters or seeing flashes Card: Denies: chest pain Resp: Denies: dyspnea GI: Reports: nausea and vomiting; Denies: abdominal pain Musc: Denies: neck pain, back pain, extremity pain or joint pain Skin/Breast: Denies: rash Neuro: Reports: headache(s); Denies: numbness in extremities, weakness in extremities, sensory changes, lack of coordination, frequent falls, dizziness, vertigo, confusion, behavioral changes, Slurred speech present, difficulty communicating thoughts or seizure-like activity PFS ED PFSH: Medical History PTSD (post-traumatic stress disorder) Generalized anxiety disorder Psychiatric care delivery delivered Abdominal distension Colon polyp Chronic diarrhea Chronic cholecystitis Epigastric pain Surgical History History of tonsillectomy History of meniscectomy of right knee History of tubal ligation History of endometrial ablation H/O total hysterectomy History of breast lump removal left Family History Father Anesthesia complication Cancer Hypertension Grandmother Chronic kidney disease (CKD) Dementia Grandfather Dementia Denies family history of Diabetes CAD (coronary artery disease) Clotting disorder Hyperlipidemia Psychiatric illness Suicide Bleeding disorder Family history of premature coronary artery disease Lung disease Stroke Social History Smoking and tobacco/nicotine status: current every day tobacco/nicotine user Alcohol intake: current Alcohol intake frequency: few times a month Physical Exam Const: COMMON NORMALS: average body habitus, patient oriented x3, no limitations, healthy appearing, alert and well nourished GENERAL APPEARANCE: cooperative and in distress (lying on the bed with hand and pillow over her head) ORIENTATION/CONSCIOUSNESS: Yes awake, Yes oriented to person, Yes oriented to place and Yes oriented to time HENMT: COMMON NORMALS: normocephalic and atraumatic HEAD & SCALP: normal to inspection, normocephalic and atraumatic FACE & SINUS: normal facial exam Eye: COMMON NORMALS: Equal, round and reactive pupils present and EOMs intact bilaterally GENERAL EYE: appearance normal, both eyes and all related structures and normal light reflex PUPIL: Yes Equal, round and reactive pupils present DIRECT OPHTHALMOSCOPY: Yes normal light reflex OTHER: no Sue's syndrome Neck/C-Spine: COMMON NORMALS: full ROM, no lymphadenopathy and no meningeal signs GENERAL: Yes normal visual inspection Resp: COMMON NORMALS: normal respiratory effort and clear to auscultation bilaterally AUSCULTATION: clear to auscultation bilaterally Cardio: COMMON NORMALS: regular rate and regular rhythm RATE: regular rate RHYTHM: regular rhythm Neuro: CASANDRA COMA SCALE: document GCS findings Woodward coma scale eye opening: Spontaneous Woodward coma scale verbal response: Orientated Woodward coma scale motor response: Obey commands Woodward coma scale total score: 15 COMMON NORMALS: patient oriented x3, CN's II-XII intact bilaterally, moves all extremities, no focal motor deficits, no sensory deficits noted and gait normal SENSORIUM/ORIENTATION: Yes alert, Yes oriented to person, Yes oriented to place and Yes oriented to time MENINGEAL SIGNS: Yes no meningeal signs Course Vital Signs: Vital signs: Vital Signs Temperature 98.0 F 02/22/24 08:37 Pulse Rate 78 02/22/24 10:23 Respiratory Rate 18 02/22/24 10:23 Blood Pressure 138/107 02/22/24 10:23 Pulse Oximetry 99 02/22/24 10:23 Oxygen Delivery Me thod Room Air 02/22/24 10:23 MDM - Headache Medical Decision Making Given history, patient required imaging for r/o SAH. With a negative head CT and negative CTA especially performed within the first 6 hours of symptoms this effectively rules out a SAH without the need for LP. She was given medication here and on re-examination appears much improved. She states she feels comfortable enough to go home. Return precautions given. Differential Diagnosis Likely migraine, subarachnoid hemorrhage and headache Medical Records I reviewed the patient's medical records. Lab Data Radiology Impressions Head CT 02/22/24 09:08 IMPRESSION: Negative head CT. Head/Neck CTA 02/22/24 09:08 IMPRESSION: 1. Normal carotid arteries. 2. No vertebral artery stenosis or dissection. 3. Very slight paucity of vessels in the LEFT MCA territory, distal to the M2 branch. No thrombus, probably normal variation for this patient. All radiology interpretation(s) finalized by discharge Discharge Plan Discharge Patient Disposition: Home Clinical Impression: Headache Qualifiers: Headache type: unspecified Headache chronicity pattern: acute headache Intractability: not intractable Qualified Code(s): R51.9 - Headache, unspecified Condition: Stable Prescriptions: No Action ibuprofen 200 mg capsule 200 mg PO Q6H PRN (Reason: Pain) Excedrin Extra Strength 250-250-65 mg Tablet 2 tab PO Q6H PRN (Reason: Pain) magnesium 250 mg Tablet 250 mg PO DAILY Jose Aminobutyric Acid 750 mg PO DAILY Discharge Orders: Discharge ED (Routine); Ordered 02/22/24 Ordered By: Tess Smith Referrals: Colette Barroso DO [Primary Care Provider] - Activity Restrictions/Additional Instructions: As we discussed I would like you to return to the emergency department for worsening or severe headache, repetitive episodes of vomiting, visual changes, severe neck pain, or any other concerns you may have. Hope you begin to feel better soon. 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
--- NOTE | 2024-02-22 09:08 | CT_ITS ---
WS: [id number] CT ANGIOGRAM CEREBRAL AND CAROTID ARTERIES HISTORY: severe headache after sneezing TECHNIQUE: CT angiogram is performed of the carotid and cerebral arteries. During arterial injection imaging is obtained from the skull vertex to the aortic arch in 1.25 mm imaging. Coronal and sagittal reformats are submitted. Additional multi planar reformats of the carotid and cerebral arteries are submitted, MIP imaging also reviewed. NASCET criteria utilized. [facility] at least one of these dose optimization techniques: automated exposure control; mA and/or kV adjust ment per patient size (includes targeted exams where dose is matched to clinical indication); or iter ative reconstruction. CONTRAST: Omnipaque 350; 100 mL IV. DLP: 480.42 mGy.cm COMPARISON: Noncontrast CT head 02/22/2024 Carotid Angiogram: Right carotid: Common carotid artery: Arises normally from the innominate artery. No significant plaque or stenosis. Internal carotid artery: No plaque or stenosis. External carotid artery: Patent. Left carotid: Common carotid artery: Arises normally from the aorta. No significant plaque or stenosis. Internal carotid artery: No plaque or stenosis. External carotid artery: Patent. Right vertebral artery: Unremarkable. Left vertebral artery: Unremarkable. Arises normally from the subclavian artery. Subclavian arteries: No stenosis or significant abnormality. Upper thorax: Normal. Thyroid gland: Normal. Osseous structures: Unremarkable. CEREBRAL ANGIOGRAM: Intracranial vertebral arteries: Normal with no significant atherosclerosis. Basilar artery: No significant stenosis or occlusion. No aneurysm. Intracranial Internal carotid arteries: Demonstrates no significant stenosis or plaque. Middle cerebral arteries: Normal M1 and M2 segments. Slightly decreased vascularity on the LEFT which may be normal for this patient. No thrombus or occlusions are identified. Anterior cerebral arteries and ACOM: Normal. Posterior cerebral arteries and PCOM's: Normal. Dural venous sinuses are normally enhancing. Mastoid air cells: Normal. Paranasal sinuses: Normal. Calvarium: Normal. CT/CT angio headneck* [id number] IMPRESSION: 1. Normal carotid arteries. 2. No vertebral artery stenosis or dissection. 3. Very slight paucity of vessels in the LEFT MCA territory, distal to the M2 branch. No thrombus, probably normal variation for this patient.
--- NOTE | 2024-02-22 09:08 | CT_ITS ---
WS: [id number] CT HEAD NONCONTRAST HISTORY: severe headache TECHNIQUE: Contiguous axial imaging performed through the brain in 2.5 mm imaging. Bone and soft tiss ue windows. Sagittal and coronal reformats reviewed. All CT scans at [facility] use at least one of these dose optimization techniques: automated exposure control; mA and/or kV adjustment per pa tient size (includes targeted exams where dose is matched to clinical indication); or iterative recon struction. DLP: 1092.98 mGy.cm COMPARISON: None available. No acute intracranial hemorrhage, midline shift or mass effect. No atrophy or prior infarcts or herniation. Ventricles: Normal size with no hydrocephalus. Paranasal sinuses: As visualized are clear. Mastoid air cells: Well pneumatized. Calvarium and scalp: Skull is intact with no soft tissue edema or swelling. CT/CT head wo con* [id number] IMPRESSION: Negative head CT.
[2024-02-22] MEDS: iohexol 350 mg/mL 500 mL Btl (per mL) IV (09:38)
[2024-02-22] MEDS: ondansetron 2 mg/ML SDV 2 mL 4 MG IVP (09:39)
[2024-02-22] MEDS: ketorolac 60 mg/2 mL INJ 30 MG IVP (09:40)
[2024-02-22] MEDS: dexamethasone 10 mg/mL INJ 8 MG IVP (09:41)
[2024-02-22 10:20] VITALS: RESP 22; O2SAT 99
[2024-02-22] MEDS: morphine 4 mg/mL SDV 1 mL IVP (10:20)
[2024-02-22 10:23] VITALS: BP 138/107; PULSE 78; RESP 18; O2SAT 99
[2024-02-22] MEDS: valproic acid inj 500 MG in sodium chloride 0.9% 50 ML 55 MG IV (11:12)
[2024-02-22 12:10] VITALS: BP 123/77; PULSE 76; RESP 18; TEMP 36.7; O2SAT 100
[2024-02-22 12:49] VITALS: BP 111/71; PULSE 84; O2SAT 98
== END 2024-02-22 12:39 | disposition home or self-care (01) ==
PROVIDERS: Emergency Provider Physician Assistant; PCP Family Medicine
DX: R51.9 Headache, unspecified (principal); Z72.0 Tobacco use
CPT/HCPCS: 70450; 70496; 70498; 96374; 96375; 99285; J1100; J1885; J2270; J2405; J3490; Q9967

== ENCOUNTER 2024-02-24 09:52 | Emergency (ER) | payer OTHER, SELFPAY ==
[2024-02-24 09:56] VITALS: BP 119/75; PULSE 63; RESP 18; TEMP 36.7; O2SAT 100; BMI 30.2
--- NOTE | 2024-02-24 09:59 | W.ED.HA ---
HPI - Headache General: Chief Complaint: Headache Stated Complaint: Headache Time Seen by Provider: 02/24/24 09:53 History of Present Illness: 33-year-old female presents emergency room complaining migraine she reports is on the left frontal area she has associated photophobia and photophobia with this. She has had migraines in the past. She was seen 2 days ago for migraine was treated in the emergency room symptoms resolved and she was released began again last night and is intense again. She was seen yesterday given Phenergan and Toradol while it improved transiently it is now worsening. Patient has also been nauseous visit. Associated symptoms: Deny chest pain, fever(s) or rash Related Data Home Medications Medication Instructions Recorded Confirmed [id number] 250 2 tab PO Q6H PRN Pain 01/13/23 02/24/24 mg-250 mg-65 mg tablet (Excedrin Extra Strength) ibuprofen 200 mg capsule 200 mg PO Q6H PRN Pain 04/22/23 02/24/24 Jose Aminobutyric Acid 750 mg PO DAILY 02/22/24 02/24/24 magnesium 250 mg tablet 250 mg PO DAILY 02/22/24 02/24/24 promethazine 25 mg tablet 25 mg PO Q8H PRN Nausea 02/24/24 02/24/24 Previous Rx's Medication Instructions Recorded promethazine 25 mg tablet 25 mg PO Q6H PRN headache #20 tabs 02/24/24 sumatriptan succinate 50 mg tablet See Rx Instructions PO .COMPLEX 02/24/24 #20 tabs topiramate 25 mg tablet (Topamax) 25 mg PO .QHS #30 tabs 02/24/24 Allergies Allergy/AdvReac Type Severity Reaction Status Date / Time diphenhydramine Allergy RASH Verified 05/04/23 09:25 [From Benadryl] Penicillins Allergy RASH Verified 05/04/23 09:25 Sulfa (Sulfonamide Allergy RASH Verified 05/04/23 09:25 Antibiotics) tioconazole Allergy ALGY-Rash Verified 05/04/23 09:25 [From Monistat 1 (tioconazole)] Review of Systems Const: Denies: fever(s) or chills Card: Denies: chest pain Resp: Denies: dyspnea GI: Denies: abdominal pain : Denies: dysuria, urinary frequency or urinary urgency Musc: Denies: neck pain or back pain Skin/Breast: Denies: rash Neuro: Reports: headache(s) PFSH ED PFSH: Medical History PTSD (post-traumatic stress disorder) Generalized anxiety disorder Psychiatric care delivery delivered Abdominal distension Colon polyp Chronic diarrhea Chronic cholecystitis Epigastric pain Surgical History History of tonsillectomy History of meniscectomy of right knee History of tubal ligation History of endometrial ablation H/O total hysterectomy History of breast lump removal left Family History Father Anesthesia complication Cancer Hypertension Grandmother Chronic kidney disease (CKD) Dementia Grandfather Dementia Denies family history of Diabetes CAD (coronary artery disease) Clotting disorder Hyperlipidemia Psychiatric illness Suicide Bleeding disorder Family history of premature coronary artery disease Lung disease Stroke Social History Smoking and tobacco/nicotine status: current every day tobacco/nicotine user Alcohol intake: current Alcohol intake frequency: few times a month Physical Exam Const: COMMON NORMALS: no acute distress GENERAL APPEARANCE: cooperative and comfortable ORIENTATION/CONSCIOUSNESS: Yes awake, Yes oriented to person, Yes oriented to place and Yes oriented to time HENMT: COMMON NORMALS: normocephalic, atraumatic and hearing grossly normal bilaterally HEAD & SCALP: normocephalic and atraumatic Resp: COMMON NORMALS: normal respiratory effort, No retractions, No use of accessory muscles and clear to auscultation bilaterally AUSCULTATION: clear to auscultation bilaterally Cardio: COMMON NORMALS: regular rate, regular rhythm and No murmurs present (Cardio) RATE: regular rate RHYTHM: regular rhythm GI: COMMON NORMALS: Soft to palpation and No hepatosplenomegaly present AUSCULTATION: Yes normoactive bowel sounds PALPATION: Yes Soft to palpation, No Tenderness to palpation present (GI), No Guarding due to palpation present (GI) and Yes No hepatosplenomegaly present Extremity: COMMON NORMALS: normal to inspection, capillary refill normal, no clubbing, cyanosis or edema, no calf tenderness and no pedal edema Neuro: SENSORIUM/ORIENTATION: Yes oriented to person, Yes oriented to place and Yes oriented to time OTHER: No focal neurologic deficits are noted Skin: COMMON NORMALS: no rashes or lesions noted GENERAL SKIN EXAM: no rashes or lesions noted Course Vital Signs: Vital signs: Vital Signs Temperature 98.1 F 02/24/24 13:00 Pulse Rate 63 02/24/24 13:00 Respiratory Rate 18 02/24/24 13:00 Blood Pressure 123/85 02/24/24 13:00 Pulse Oximetry 100 02/24/24 13:00 Oxygen Delivery Me thod Room Air 02/24/24 11:27 MDM - Headache Medical Decision Making 2 days ago and patient here patient had a CTA head and neck as well as a head CT both of which were normal. Headache resolved completely with treatments given here in the emergency room. Is her second visit this week talking to her she does frequently have headaches that are debilitating. Will start her on Topamax 25 nightly she should follow-up with her primary care doctor to titrate to effectiveness discussed with her may take some time for it to reach its full effectiveness and likely will need some adjustment to be effective at migraine prophylaxis. She was also given promethazine to use as needed for headaches additionally given sumatriptan to use for migraine prophylaxis. Follow-up with her primary care doctor within 7 to 10 days return if she has further problems. Lab Data 02/24/24 10:04 02/24/24 10:04 Laboratory Results WBC 7.10 10^3/uL (3.29-11.43) 02/24/24 10:04 RBC 4.47 10^6/uL (3.85-5.65) 02/24/24 10:04 Hgb 13.40 g/dL (11.27-16.99) 02/24/24 10:04 Hct 41.1 % (36-47) 02/24/24 10:04 MCV 91.9 fl (85-98) 02/24/24 10:04 MCH 30.0 pg (27-33) 02/24/24 10:04 MCHC 32.6 g/dL (30-55) 02/24/24 10:04 RDW 11.8 % (12.1-15.1) L 02/24/24 10:04 Plt Count 174 10^3/cmm (157-399) 02/24/24 10:04 MPV 10.1 fL (7.4-10.4) 02/24/24 10:04 Neut % (Auto) 63.4 % 02/24/24 10:04 Lymph % (Auto) 28.0 % 02/24/24 10:04 Cobb % (Auto) 6.9 % 02/24/24 10:04 Eos % (Auto) 0.8 % 02/24/24 10:04 Baso % (Auto) 0.6 % 02/24/24 10:04 Neut # (Auto) 4.50 10^3/uL (1.8-7.7) 02/24/24 10:04 Lymph # (Auto) 2.0 10^3/uL (0.8-4.8) 02/24/24 10:04 Cobb # (Auto) 0.5 10^3/uL (0.2-0.9) 02/24/24 10:04 Eos # (Auto) 0.1 10^3/uL (0.0-0.8) 02/24/24 10:04 Baso # (Auto) 0.0 10^3/uL (0.0-0.1) 02/24/24 10:04 Nucleated RBC % (auto) 0 % 02/24/24 10:04 Nucleated RBCs # 0.0 /100WBC 02/24/24 10:04 Sodium 143 mmol/L (136-145) 02/24/24 10:04 Potassium 4.0 mmol/L (3.5-5.1) 02/24/24 10:04 Chloride 108 mmol/L (98-107) H 02/24/24 10:04 Carbon Dioxide 21 mmol/L (22-29) L 02/24/24 10:04 Anion Gap 18.0 (5-19) 02/24/24 10:04 BUN 22 mg/dL (6-20) H 02/24/24 10:04 Creatinine 1.0 mg/dL (0.5-0.9) H 02/24/24 10:04 GFR Calculation 63.9 mL/min (90-130) L 02/24/24 10:04 Glucose 120 mg/dL (65-115) H 02/24/24 10:04 Calculated Osmolality 301 mOsm/kg (285-295) H 02/24/24 10:04 Calcium 8.9 mg/dL (8.5-10.5) 02/24/24 10:04 Total Bilirubin 0.2 mg/dL (0.15-1.2) 02/24/24 10:04 AST 23 U/L (0-32) 02/24/24 10:04 ALT 37 U/L (0-33) H 02/24/24 10:04 Alkaline Phosphatase 65 U/L (35-105) 02/24/24 10:04 Total Protein 6.5 g/dL (6.6-8.7) L 02/24/24 10:04 Albumin 4.3 g/dL (3.5-5.2) 02/24/24 10:04 Globulin 2.2 g/dL (1.3-4.6) 02/24/24 10:04 No radiology studies performed this visit Discharge Plan Discharge Patient Disposition: Home Clinical Impression: Migraine Condition: Stable Prescriptions: New promethazine 25 mg tablet 25 mg PO Q6H PRN (Reason: headache) Qty: 20 0RF Topamax 25 mg tablet 25 mg PO .QHS Qty: 30 0RF sumatriptan succinate 50 mg tablet See Rx Instructions .ROUTE .COMPLEX Qty: 20 0RF Rx Instructions: take 1 tab at onset of headache; if no relief may repeat 1 tab after at least 2 hrs; max = 4 tabs/24 hr No Action ibuprofen 200 mg capsule 200 mg PO Q6H PRN (Reason: Pain) Excedrin Extra Strength 250-250-65 mg Tablet 2 tab PO Q6H PRN (Reason: Pain) magnesium 250 mg Tablet 250 mg PO DAILY Jose Aminobutyric Acid 750 mg PO DAILY promethazine 25 mg tablet 25 mg PO Q8H PRN (Reason: Nausea) Discharge Orders: Discharge ED (Routine); Ordered 02/24/24 Ordered By: Peter Sotomayor Referrals: Colette Barroso DO [Primary Care Provider] - Discharge Diet: Usual diet Discharge Activity: Increase activity as tolerated Patient Instructions: Opioid Safety, Pain Management Activity Restrictions/Additional Instructions: Thank you for choosing [facility] for your healthcare needs today. It is very important that you follow up as instructed or that you return to the Emergency Department should you have concerns or if your condition changes or worsens in any way. You were seen today for headache. Your symptoms are improved with medications Recommend Starting on Topamax 25 Mg nightly. Recheck with your primary care doctor within the 7-10 days. 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
[2024-02-24] MEDS: metoclopramide 5 mg/mL SDV 2 mL 10 MG IVP (10:11)
[2024-02-24 10:13] LABS: Basophils % 0.6 %; Eosinophils # 0.1 10^3/uL (0.0-0.8); Eosinophils % 0.8 %; Hematocrit 41.1 % (36-47); Mean Corpuscular HGB Conc 32.6 g/dL (30-55); Mean Corpuscular Volume 91.9 fl (85-98); Mean Platelet Volume 10.1 fL (7.4-10.4); Monocytes # 0.5 10^3/uL (0.2-0.9); Monocytes % 6.9 %; Neutrophils % 63.4 %; Nucleated Red Blood Cells % 0 %; Platelet Count 174 10^3/cmm (157-399); Red Blood Count 4.47 10^6/uL (3.85-5.65); Red Cell Distribution Width 11.8 % (12.1-15.1)
[2024-02-24] MEDS: ketorolac 30 mg/mL INJ IVP (10:13)
[2024-02-24] MEDS: sodium chloride 0.9% 1,000 ML 999 ML IV (10:14)
[2024-02-24 10:29] LABS: Alanine Aminotransferase 37 U/L (0-33); Albumin Level 4.3 g/dL (3.5-5.2); Alkaline Phosphatase 65 U/L (35-105); Aspartate Amino Transferase 23 U/L (0-32); Blood Urea Nitrogen 22 mg/dL (6-20); Calcium 8.9 mg/dL (8.5-10.5); Carbon Dioxide 21 mmol/L (22-29); Chloride 108 mmol/L (98-107); Creatinine Clr Calc Pharmacy 85.9465; Globulin 2.2 g/dL (1.3-4.6); Glomerular Filtration Rate 63.9 mL/min (90-130); Glucose 120 mg/dL (65-115); Osmolality Calculated 301 mOsm/kg (285-295); Sodium 143 mmol/L (136-145); Total Bilirubin 0.2 mg/dL (0.15-1.2); Total Protein 6.5 g/dL (6.6-8.7)
[2024-02-24] MEDS: valproic acid inj 500 MG in sodium chloride 0.9% 50 ML 55 MG IV (11:23)
[2024-02-24 11:27] VITALS: BP 123/85; PULSE 63; O2SAT 100
[2024-02-24 13:00] VITALS: BP 123/85; PULSE 63; RESP 18; TEMP 36.7; O2SAT 100
== END 2024-02-24 13:01 | disposition home or self-care (01) ==
PROVIDERS: Emergency Provider Family Medicine; PCP Family Medicine
DX: G43.909 Migraine, unspecified, not intractable, without status migrainosus (principal); Z72.0 Tobacco use
CPT/HCPCS: 80053; 85025; 96365; 96375; 99284; J1885; J2765; J3490; J7030

== ENCOUNTER 2024-05-26 14:16 | Emergency (ER) | payer OTHER, SELFPAY ==
[2024-05-26 14:16] VITALS: BP 123/83; PULSE 70; RESP 18; TEMP 36.9; O2SAT 99; BMI 26.9
--- NOTE | 2024-05-26 14:20 | ED_ITS ---
HPI - Neuro Symptoms/Deficit 2 General: Chief Complaint: Neuro Symptoms/Deficit Stated Complaint: STROKE LIKE SYMPTOMS Time Seen by Provider: 05/26/24 14:20 History of Present Illness: 34-year-old female presents emergency ro om complaining of headache. She had migraine problems the past with seen earlier this year she had a CTA of the head and a CT both which were negative. Her symptoms cleared up with treatment of her migraine. She is complaining of left-sided numbness and weakness began around 1330 she presents we have previously seen her she is complaining of persistent headaches and she was started on Topamax it does not appear she is continuing to take it. At 1416. She has had a headache all day. Associated symptoms: Deny chest pain Related Data Home Medications Medication Instructions Recorded Confirmed qageuuq-towunugynkacv-huqfywtr 250 2 tab PO Q6H PRN Pain 01/13/23 05/26/24 mg-250 mg-65 mg tablet (Excedrin Extra Strength) ibuprofen 200 mg capsule 200 mg PO Q6H PRN Pain 04/22/23 05/26/24 magnesium 250 mg tablet 250 mg PO DAILY 02/22/24 05/26/24 fluoxetine 20 mg tablet 20 mg PO BID 05/26/24 05/26/24 topiramate 50 mg tablet 50 mg PO BID 05/26/24 05/26/24 Previous Rx's Medication Instructions Recorded promethazine 25 mg tablet 25 mg PO Q6H PRN headache #20 tabs 02/24/24 sumatriptan succinate 50 mg tablet See Rx Instructions PO .COMPLEX 02/24/24 #20 tabs Allergies Allergy/AdvReac Type Severity Reaction Status Date / Time diphenhydramine Allergy RASH Verified 05/04/23 09:25 [From Benadryl] Penicillins Allergy RASH Verified 05/04/23 09:25 Sulfa (Sulfonamide Allergy RASH Verified 05/04/23 09:25 Antibiotics) tioconazole Allergy ALGY-Rash Verified 05/04/23 09:25 [From Monistat 1 (tioconazole)] Review of Systems 2 Const: Denies: fever(s) or chills Card: Denies: chest pain Resp: Denies: dyspnea GI: Denies: abdominal pain : Denies: dysuria, urinary frequency or urinary urgency Musc: Denies: neck pain or back pain Skin/Breast: Denies: rash PFSH ED 2 PFSH: Medical History PTSD (post-traumatic stress disorder) Generalized anxiety disorder delivery delivered Abdominal distension Colon polyp Chronic diarrhea Chronic cholecystitis Epigastric pain Surgical History History of tonsillectomy History of meniscectomy of right knee History of tubal ligation History of endometrial ablation H/O total hysterectomy History of breast lump removal left Family History Father Anesthesia complication Cancer Hypertension Grandmother Chronic kidney disease (CKD) Dementia Grandfather Dementia Denies family history of Diabetes CAD (coronary artery disease) Clotting disorder Hyperlipidemia Psychiatric illness Suicide Bleeding disorder Family history of premature coronary artery disease Lung disease Stroke Social History Smoking and tobacco/nicotine status: current every day tobacco/nicotine user Alcohol intake: current Alcohol intake frequency: few times a month NIH stroke score 2 NIHSS: Level Of Consciousness - 1a: 0 Level Of Consciousness Questions - 1b: Both Correct Level Of Consciousness Commands - 1c: Both Correct Best Gaze - 2: Normal Visual Angulo - 3: No Visual Loss Facial Palsy - 4: N ormal Motor Arm Right - 5: No Drift Motor Arm Left - 5: Drift Motor Leg Right - 6: No Drift Motor Leg Left - 6: Drift Limb Ataxia - 7: Present In Two Limbs Sensory - 8: Mild To Moderate Loss Best Language - 9: No Aphasia Dysarthia - 10: Normal Extinction And Inattention - 11: 0 Score: Total Score: 5 Physical Exam 2 Const: GENERAL APPEARANCE: cooperative ORIENTATION/CONSCIOUSNESS: Yes awake, Yes oriented to person, Yes oriented to place and Yes oriented to time HENMT: COMMON NORMALS: normocephalic, atraumatic and hearing grossly normal bilaterally HEAD & SCALP: normocephalic and atraumatic Resp: COMMON NORMALS: normal respiratory effort, No retractions, No use of accessory muscles and clear to auscultation bilaterally AUSCULTATION: clear to auscultation bilaterally Cardio: COMMON NORMALS: regular rate, regular rhythm and No murmurs present (Cardio) RATE: regular rate RHYTHM: regular rhythm GI: COMMON NORMALS: Soft to palpation and No hepatosplenomegaly present A USCULTATION: Yes normoactive bowel sounds PALPATION: Yes Soft to palpation, No Tenderness to palpation present (GI), No Guarding due to palpation present (GI) and Yes No hepatosplenomegaly present Extremity: COMMON NORMALS: normal to inspection, capillary refill normal, no clubbing, cyanosis or edema, no calf tenderness and no pedal edema Neuro: SENSORIUM/ORIENTATION: Yes oriented to person, Yes oriented to place and Yes oriented to time Skin: COMMON NORMALS: no rashes or lesions noted GENERAL SKIN EXAM: no rashes or lesions noted Course 2 Vital Signs: Vital signs: Vital Signs Temperature 98.4 F 05/26/24 14:16 Pulse Rate 51 L 05/26/24 18:16 Respiratory Rate 18 05/26/24 14:16 Blood Pressure 113/72 05/26/24 18:16 Pulse Oximetry 98 05/26/24 18:16 Oxygen Delivery Me thod Room Air 05/26/24 17:00 MDM - Neuro Symptoms/Deficit Medical Decision Making Initial evaluation patient has weakness on her left side limited to her arm and leg. She also has other rather unique symptoms when I had her sit up she was able to set up including using her left hand to help her set up but she had difficulty with holding her head upright when I asked her to lift her head and looking straight at me. She has no facial asymmetry. Her sensation left to right is normal. She continues to have a headache. They reviewed the case with Dr. 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 Dr. Kumar recommends treatment with Depakene. Patient treated with 2 doses all of her symptoms are completely resolved she was able to ambulate to the bathroom she is now using her left hand for fine dexterous movements without difficulty no weakness or other symptoms in her left leg those have all resolved as well. Will discharge patient home have her follow-up with neurology. Patient reports she is under a great deal of stress since she drinks large volumes of caffeine and energy drinks which I think what is precipitating her worsening migraines recently. She continues takes Topamax she is taking 50 mg twice a day at this time advised her to continue that dose. Medical Records I reviewed the patient's medical records. Lab Data I reviewed the patient's lab results. 05/26/24 14:05 05/26/24 14:[address] 05/26/24 14:25 IMPRESSION: 1. No evidence of intracranial hemorrhage or mass effect. 2. No acute intracranial findings. Notified Peter Sotomayor DO at 05/26/2024 2:30 PM. Laboratory Results WBC 5.11 10^3/uL (3.29-11.43) 05/26/24 14:05 RBC 4.81 10^6/uL (3.85-5.65) 05/26/24 14:05 Hgb 14.60 g/dL (11.27-16.99) 05/26/24 14:05 Hct 41.6 % (36-47) 05/26/24 14:05 MCV 86.5 fl (85-98) 05/26/24 14:05 MCH 30.4 pg (27-33) 05/26/24 14:05 MCHC 35.1 g/dL (30-55) 05/26/24 14:05 RDW 11.6 % (12.1-15.1) L 05/26/24 14:05 Plt Count 212 10^3/cmm (157-399) 05/26/24 14:05 MPV 11.7 fL (7.4-10.4) H 05/26/24 14:05 Neut % (Auto) 48.5 % 05/26/24 14:05 Lymph % (Auto) 41.9 % 05/26/24 14:05 [place] % (Auto) 7.2 % 05/26/24 14:05 Eos % (Auto) 1.4 % 05/26/24 14:05 Baso % (Auto) 0.8 % 05/26/24 14:05 Neut # (Auto) 2.48 10^3/uL (1.8-7.7) 05/26/24 14:05 Lymph # (Auto) 2.1 10^3/uL (0.8-4.8) 05/26/24 14:05 [place] # (Auto) 0.4 10^3/uL (0.2-0.9) 05/26/24 14:05 Eos # (Auto) 0.1 10^3/uL (0.0-0.8) 05/26/24 14:05 Baso # (Auto) 0.0 10^3/uL (0.0-0.1) 05/26/24 14:05 Nucleated RBC % (auto) 0 % 05/26/24 14:05 Nucleated RBCs # 0.0 /100WBC 05/26/24 14:05 PT 13.90 SECONDS (12.1-14.9) 05/26/24 14:05 INR 1.04 (0.8-1.2) 05/26/24 14:05 APTT 29.8 SECONDS (23.9-36.7) 05/26/24 14:05 Sodium 140 mmol/L (136-145) 05/26/24 14:05 Potassium 4.1 mmol/L (3.5-5.1) 05/26/24 14:05 Chloride 111 mmol/L (98-107) H 05/26/24 14:05 Carbon Dioxide 17 mmol/L (22-29) L 05/26/24 14:05 Anion Gap 16.1 (5-19) 05/26/24 14:05 BUN 14 mg/dL (6-20) 05/26/24 14:05 Creatinine 0.6 mg/dL (0.5-0.9) 05/26/24 14:05 GFR Calculation 114.4 mL/min (90-130) 05/26/24 14:05 Glucose 86 mg/dL (65-115) 05/26/24 14:05 POC Glucose 82 mg/dL (70-110) 05/26/24 14:19 Calculated Osmolality 290 mOsm/kg (285-295) 05/26/24 14:05 Calcium 9.1 mg/dL (8.5-10.5) 05/26/24 14:05 Total Bilirubin 0.2 mg/dL (0.15-1.2) 05/26/24 14:05 AST 13 U/L (0-32) 05/26/24 14:05 ALT 12 U/L (0-33) 05/26/24 14:05 Alkaline Phosphatase 82 U/L (35-105) 05/26/24 14:05 Total Protein 6.6 g/dL (6.6-8.7) 05/26/24 14:05 Albumin 4.8 g/dL (3.5-5.2) 05/26/24 14:05 Globulin 1.8 g/dL (1.3-4.6) 05/26/24 14:05 Urine Color Yellow (Yellow) 05/26/24 17:14 Urine Appearance Turbid (CLEAR) A 05/26/24 17:14 Urine pH 8.0 (5-7) A 05/26/24 17:14 Ur Specific [place] 1.014 (1.005-1.030) 05/26/24 17:14 Urine Protein Negative (Negative) 05/26/24 17:14 Urine Glucose (UA) Negative (Normal) 05/26/24 17:14 Urine Ketones Trace (Negative) 05/26/24 17:14 Urine Blood Negative (Negative) 05/26/24 17:14 Urine Nitrate Negative (Negative) 05/26/24 17:14 Urine Bilirubin Negative (Negative) 05/26/24 17:14 Urine Urobilinogen 1.0 mg/dL (Negative) 05/26/24 17:14 Ur Leukocyte Esterase Negative (Negative) 05/26/24 17:14 Urine RBC 3-5 /hpf (0-2) 05/26/24 17:14 Urine WBC 6-10 /hpf (0-5) 05/26/24 17:14 Ur Squamous Epith Cells 21-50 /hpf (0-5) 05/26/24 17:14 Amorphous Sediment Not Reportable 05/26/24 17:14 Urine Bacteria 2+ /hpf (NONE) H 05/26/24 17:14 Hyaline Casts 5.36 /lpf 05/26/24 17:14 Urine Opiates Screen Negative ng/mL (Negative) 05/26/24 17:14 Ur Barbiturates Screen Negative ng/mL (Negative) 05/26/24 17:14 Ur Phencyclidine Scrn Negative ng/mL (Negative) 05/26/24 17:14 Ur Amphetamines Screen Negative ng/mL (Negative) 05/26/24 17:14 U Benzodiazepines Scrn Positive ng/mL (Negative) H 05/26/24 17:14 Urine Cocaine Screen Negative ng/mL (Negative) 05/26/24 17:14 U Marijuana (THC) Screen Negative ng/mL (Negative) 05/26/24 17:14 All radiology interpretation(s) finalized by discharge Discharge Plan Discharge Patient Disposition: Home Clinical Impression: Hemiplegic migraine Condition: Stable Prescriptions: No Action ibuprofen 200 mg capsule 200 mg PO Q6H PRN (Reason: Pain) Excedrin Extra Strength 250-250-65 mg Tablet 2 tab PO Q6H PRN (Reason: Pain) magnesium 250 mg Tablet 250 mg PO DAILY promethazine 25 mg tablet 25 mg PO Q6H PRN (Reason: headache) Qty: 20 0RF sumatriptan succinate 50 mg tablet See Rx Instructions .ROUTE .COMPLEX Qty: 20 0RF Rx Instructions: take 1 tab at onset of headache; if no relief may repeat 1 tab after at least 2 hrs; max = 4 tabs/24 hr fluoxetine 20 mg tablet 20 mg PO BID topiramate 50 mg tablet 50 mg PO BID Discharge Orders: Discharge ED (Routine); Ordered 05/26/24 Ordered By: Peter Sotomayor Referrals: Colette Barroso DO [Primary Care Provider] - Discharge Diet: Usual diet Discharge Activity: Increase activity as tolerated Patient Instructions: Opioid Safety, Pain Management Activity Restrictions/Additional Instructions: Thank you for choosing [facility] for your healthcare needs today. It is very important that you follow up as instructed or that you return to the Emergency Department should you have concerns or if your condition changes or worsens in any way. You were seen in the emergency room for weakness on the left side. This was found to be a migraine variant CT of your head was normal. Case management will make arrangements for you to follow-up with Dr. Kumar. Coding Level of Care Code ED Metal Tile Setter for Burke Rivas
--- NOTE | 2024-05-26 14:25 | CT_ITS ---
WS: [id number] CT HEAD TECHNIQUE: Noncontrast CT of the head obtained from the skullbase to the vertex. CLINICAL INFORMATION: lt side weakness COMPARISON: CT 02/22/2024 DLP: 1014 mgy/cm All CT scans at [facility] use at least one of these dose optimization techniques: automated e xposure control; mA and/or kV adjustment per patient size (includes targeted exams where dose is matc hed to clinical indication); or iterative reconstruction. FINDINGS: No evidence of intracranial hemorrhage or mass effect. Ventricular system and basal cisterns are owen nt. No extra-axial fluid collections. No evidence of mass or mass effect. Normal garcia-white different iation. Paranasal sinuses and mastoid air cells are well aerated. .Normal visualized soft tissues. CT/CT head thrombolytic [address]7516 IMPRESSION: 1. No evidence of intracranial hemorrhage or mass effect. 2. No acute intracranial findings. Notified Peter Sotomayor DO at 05/26/2024 2:30 PM.
[2024-05-26 14:27] LABS: Glucose Point of Care 82 mg/dL (70-110)
--- NOTE | 2024-05-26 14:39 | ECG_ITS ---
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 Measurements Intervals Strong Rate: 54 P: 57 ND: 149 QRS: 67 QRSD: 85 T: 69 QT: 441 QTc: 418 Interpretive Statements SINUS BRADYCARDIA LOW QRS VOLTAGE IN PRECORDIAL LEADS [QRS DEFLECTION < 1.0 mV IN CHEST LEADS] No previous ECG available for comparison Electronically Signed On 05-27-2024 10:22:40 LOADING MACHINE TOOL SETTER by Biju Hairston M.D. [email or web address]
[2024-05-26] MEDS: valproic acid inj 500 MG in sodium chloride 0.9% 50 ML 55 MG IV ×2 (14:46→17:12)
[2024-05-26 14:54] LABS: Basophils % 0.8 %; Eosinophils # 0.1 10^3/uL (0.0-0.8); Eosinophils % 1.4 %; Hematocrit 41.6 % (36-47); Lymphocytes # 2.1 10^3/uL (0.8-4.8); Lymphocytes % 41.9 %; Mean Corpuscular HGB Conc 35.1 g/dL (30-55); Mean Corpuscular Hemoglobin 30.4 pg (27-33); Mean Corpuscular Volume 86.5 fl (85-98); Mean Platelet Volume 11.7 fL (7.4-10.4); Monocytes # 0.4 10^3/uL (0.2-0.9); Monocytes % 7.2 %; Neutrophils # 2.48 10^3/uL (1.8-7.7); Neutrophils % 48.5 %; Nucleated Red Blood Cells % 0 %; Platelet Count 212 10^3/cmm (157-399); Red Blood Count 4.81 10^6/uL (3.85-5.65); Red Cell Distribution Width 11.6 % (12.1-15.1); White Blood Count 5.11 10^3/uL (3.29-11.43)
[2024-05-26 15:03] LABS: INR 1.04 (0.8-1.2)
[2024-05-26 15:04] LABS: Partial Thromboplastin Time 29.8 SECONDS (23.9-36.7)
[2024-05-26 15:08] LABS: Alanine Aminotransferase 12 U/L (0-33); Albumin Level 4.8 g/dL (3.5-5.2); Alkaline Phosphatase 82 U/L (35-105); Blood Urea Nitrogen 14 mg/dL (6-20); Calcium 9.1 mg/dL (8.5-10.5); Carbon Dioxide 17 mmol/L (22-29); Chloride 111 mmol/L (98-107); Globulin 1.8 g/dL (1.3-4.6); Glomerular Filtration Rate 114.4 mL/min (90-130); Glucose 86 mg/dL (65-115); Osmolality Calculated 290 mOsm/kg (285-295); Sodium 140 mmol/L (136-145); Total Bilirubin 0.2 mg/dL (0.15-1.2); Total Protein 6.6 g/dL (6.6-8.7)
[2024-05-26 15:15] LABS: Anion Gap 16.1 (5-19); Aspartate Amino Transferase 13 U/L (0-32); Potassium 4.1 mmol/L (3.5-5.1)
[2024-05-26 15:45] VITALS: BP 114/82; PULSE 57; O2SAT 100
[2024-05-26 16:30] VITALS: BP 108/71; PULSE 57; O2SAT 99
[2024-05-26 17:00] VITALS: BP 103/69; PULSE 50; O2SAT 98
[2024-05-26 17:23] LABS: Bilirubin Urine Negative (Negative); Blood Urine Negative (Negative); Glucose Urine UA Negative (Normal); Ketones Urine Trace (Negative); Leukocyte Esterase Urine Negative (Negative); Nitrate Urine Negative (Negative); Protein Urine Negative (Negative); Specific Gravity, Urine 1.014 (1.005-1.030); Urine Appearance Turbid (CLEAR); Urine Color Yellow (Yellow)
[2024-05-26 17:28] LABS: Add Urine Microscopic? YES; Bacteria Urine 2+ /hpf; Hyaline Casts Urine 5.36 /lpf; Squamous Epithelial Cell Urine 21-50 /hpf (0-5)
[2024-05-26 17:30] LABS: Amphetamines Screen Urine Negative (Negative); Barbiturates Screen Urine Negative (Negative); Benzodiazepines Screen Urine Positive (Negative); Cocaine Screen Urine Negative (Negative); Opiate Screen Urine Negative (Negative); PCP Screen Urine Negative (Negative); THC Screen Urine Negative (Negative)
[2024-05-26 18:16] VITALS: BP 113/72; PULSE 51; O2SAT 98
--- NOTE | 2024-05-29 07:30 | DCPLANNER ---
messaged neuro for er f/u
== END 2024-05-26 18:17 | disposition home or self-care (01) ==
PROVIDERS: Emergency Provider Family Medicine; PCP Family Medicine
DX: G43.409 Hemiplegic migraine, not intractable, without status migrainosus (principal); Z72.0 Tobacco use
CPT/HCPCS: 36416; 70450; 80053; 80306; 81001; 82962; 85025; 85610; 85730; 93005; 96365; 96366; 99285; J3490

== ENCOUNTER 2024-12-19 22:07 | Emergency (ER) | payer OTHER, SELFPAY ==
[2024-12-19 22:20] VITALS: BP 117/82; PULSE 115; RESP 24; TEMP 36.5; O2SAT 96; BMI 25.6
--- NOTE | 2024-12-19 22:23 | ECG_ITS ---
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 Measurements Intervals [place] Rate: 62 P: 54 CT: 151 QRS: 49 QRSD: 89 T: 62 QT: 390 QTc: 398 Interpretive Statements SINUS RHYTHM Compared to ECG 05/26/2024 14:39:25 Sinus bradycardia no longer present Electronically Signed On 12-21-2024 06:08:11 CDT by Urban Penny M.D. [email or web address]
--- NOTE | 2024-12-19 22:59 | W.ED.ALLEREA ---
HPI - Allergic Reaction General: Chief complaint: Allergic Reaction Stated complaint: Reaction to Food Time Seen by Provider: 12/19/24 22:51 History of Present Illness: HPI narrative: 34-year-old female who presents emergency room with a possible allergic reaction. She does like she is having some trouble breathing and she developed a rash. She had eaten a sandwich that she eats every week at this time prior to this happening. She also used a new bug spray that she had not used before which may have caused this. Related Data Home Medications ?Medication ?Instructions ?Recorded ?Confirmed dnimghv-vheoirhugsztc-ljqjvlpt 250 2 tab PO Q6H PRN Pain 01/13/23 05/26/24 mg-250 mg-65 mg tablet (Excedrin Extra Strength) ibuprofen 200 mg capsule 200 mg PO Q6H PRN Pain 04/22/23 05/26/24 magnesium 250 mg tablet 250 mg PO DAILY 02/22/24 05/26/24 fluoxetine 20 mg tablet 20 mg PO BID 05/26/24 05/26/24 topiramate 50 mg tablet 50 mg PO BID 05/26/24 05/26/24 Previous Rx's ?Medication ?Instructions ?Recorded promethazine 25 mg tablet 25 mg PO Q6H PRN headache #20 tabs 02/24/24 sumatriptan succinate 50 mg tablet See Rx Instructions PO .COMPLEX 02/24/24 #20 tabs Allergies Allergy/AdvReac Type Severity Reaction Status Date / Time diphenhydramine (From Allergy RASH Verified 05/04/23 09:25 Benadryl) Penicillins Allergy RASH Verified 05/04/23 09:25 Sulfa (Sulfonamide Allergy RASH Verified 05/04/23 09:25 Antibiotics) tioconazole (From Monistat 1 Allergy ALGY-Rash Verified 05/04/23 09:25 (tioconazole)) Review of Systems Narrative: Constitutional symptoms: Negative except as documented in HPI. Skin symptoms: Negative except as documented in HPI. Eye symptoms: Negative except as documented in HPI. ENMT symptoms: Negative except as documented in HPI. Respiratory symptoms: Negative except as documented in HPI. Cardiovascular symptoms: Negative except as documented in HPI. Gastrointestinal symptoms: Negative except as documented in HPI. Genitourinary symptoms: Negative except as documented in HPI. Musculoskeletal symptoms: Negative except as documented in HPI. Neurologic symptoms: Negative except as documented in HPI. Psychiatric symptoms: Negative except as documented in HPI. Endocrine symptoms: Negative except as documented in HPI. PFSH ED PFSH: Medical History PTSD (post-traumatic stress disorder) Generalized anxiety disorder delivery delivered Abdominal distension Colon polyp Chronic diarrhea Chronic cholecystitis Epigastric pain Surgical History History of tonsillectomy History of meniscectomy of right knee History of tubal ligation History of endometrial ablation H/O total hysterectomy History of breast lump removal left Family History Father Anesthesia complication Cancer Hypertension Grandmother Chronic kidney disease (CKD) Dementia Grandfather Dementia Denies family history of Diabetes CAD (coronary artery disease) Clotting disorder Hyperlipidemia Psychiatric illness Suicide Bleeding disorder Family history of premature coronary artery disease Lung disease Stroke Social History Smoking and tobacco/nicotine status: current every day tobacco/nicotine user Alcohol intake: current Alcohol intake frequency: few times a month Physical Exam Narrative: EXAM NARRATIVE: General: Alert, no acute distress. Skin: Warm, dry. Head: Normocephalic, atraumatic. Neck: Supple, trachea midline. Eye: Extraocular movements are intact. Ears, nose, mouth and throat: mucosa moist. Cardiovascular: Regular, Normal peripheral perfusion. Respiratory: Lungs are clear to auscultation, no increased work of breathing. Frequent cough. Gastrointestinal: Soft, Nontender, Non distended Musculoskeletal: Normal ROM, no deformity. Neurological: Alert and oriented, No focal neurological deficit observed. Psychiatric: Cooperative, appropriate mood & affect. Course Vital Signs: Vital signs: Vital Signs Temperature 97.7 F 12/19/24 22:20 Pulse Rate 73 12/20/24 00:18 Respiratory Rate 16 12/20/24 00:18 Blood Pressure 110/63 12/20/24 00:18 Pulse Oximetry 98 12/20/24 00:18 Oxygen Delivery Me thod Room Air 12/20/24 00:18 MDM - Allergic Reaction Medical Decision Making Medical decision making: Differential diagnosis including but not limited to and based on the above HPI, review of systems and physical exam: In a patient with complaints of allergic reaction have concern for anaphylaxis, medication reactions and viral reactions. Orders placed to evaluate differential diagnosis based on the above differential, HPI and physical exam Reexamination: Patient says she feels much better. She is back to her baseline. Rash is gone now. No coughing or trouble breathing. Assessment and plan: Allergic reaction ?Solu-Medrol and famotidine in the emergency room. Benadryl allergy - Discharged home - Discussed plan with patient. Answered any questions. - Evaluation and treatment of this problem were appropriate in the emergency setting. No radiology studies performed this visit Discharge Plan Discharge Patient Disposition: Home Clinical Impression: Allergic reaction Condition: Stable Prescriptions: No Action ibuprofen 200 mg capsule 200 mg PO Q6H PRN (Reason: Pain) Excedrin Extra Strength 250-250-65 mg Tablet 2 tab PO Q6H PRN (Reason: Pain) magnesium 250 mg Tablet 250 mg PO DAILY promethazine 25 mg tablet 25 mg PO Q6H PRN (Reason: headache) Qty: 20 0RF sumatriptan succinate 50 mg tablet See Rx Instructions .ROUTE .COMPLEX Qty: 20 0RF Rx Instructions: take 1 tab at onset of headache; if no relief may repeat 1 tab after at least 2 hrs; max = 4 tabs/24 hr fluoxetine 20 mg tablet 20 mg PO BID topiramate 50 mg tablet 50 mg PO BID Discharge Orders: Discharge ED (Routine); Ordered 12/20/24 Ordered By: aTnika Gray Referrals: Colette Barroso DO [Primary Care Provider, WHEEL INSPECTOR] Discharge Diet: Usual diet Discharge Activity: Increase activity as tolerated Patient Instructions: General Allergic Reaction (ED), Opioid Safety, Pain Management Activity Restrictions/Additional Instructions: Thank you for choosing [facility] for your healthcare needs today. You have been screened and evaluated and felt safe for discharge. Health conditions do change or evolve sometimes and as such it is important that you follow up with your Primary Doctor to be re checked, 3-5 days is a general good time frame for follow up. 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
[2024-12-19] MEDS: famotidine 20 mg/2 mL INJ 40 MG IVP (23:11)
[2024-12-19] MEDS: methylPREDNISolone sod succ 125 mg/2 mL INJ IVP (23:12)
[2024-12-19 23:15] VITALS: BP 106/79; PULSE 75; RESP 16; O2SAT 97
[2024-12-20 00:18] VITALS: BP 110/63; PULSE 73; RESP 16; O2SAT 98
[2024-12-20 00:32] VITALS: BP 106/73; PULSE 68; RESP 16; O2SAT 97
== END 2024-12-20 00:33 | disposition home or self-care (01) ==
PROVIDERS: Emergency Provider Emergency Medicine; PCP Family Medicine
DX: T78.40XA Allergy, unspecified, initial encounter (principal); X58.XXXA Exposure to other specified factors, initial encounter; Z72.0 Tobacco use
CPT/HCPCS: 93005; 96374; 96375; 99284; J2919; J3490

== ENCOUNTER 2025-06-13 00:04 | Emergency (ER) | payer SELFPAY ==
[2025-06-13 00:06] VITALS: BP 111/70; PULSE 117; RESP 18; TEMP 38.9; O2SAT 99; BMI 25.0
--- OUTSIDE RECORDS SUMMARY | 2025-06-13 00:12 | XMS_ITS | Data Portability ---
Author Organization VENICE Breezy La [facility], SybilLJONN [facility]UN[facility] Address [address] [address] [place] [address] Care Team Providers Care Engagement Mgr Name Role Phone JALEN BARROSO Primary Care Provider Assessment No assessment recorded. Plan of Treatment Reminders Order Date Submit Date Provider Last Modified By Organization Details Last Modified Time Details Appointments None recorded. Lab None recorded. Referral None recorded. Procedures None recorded. Surgeries None recorded. Imaging None recorded. Medication Orders ciprofloxac in 0.3 % eye drops 2024 025 [facility] [place], [facility] [place], [address], 5 11:51:32 promethazin e 12.5 mg rectal suppository 2024 025 [facility] [place], [facility] [place], [address], 5 11:41:26 ketorolac 30 mg/mL (1 mL) injection solution 2024 025 [email or web address] Not available 10:23:13 ondansetron HCl (PF) 4 mg/2 mL injection solution 2024 025 [email or web address] Not available 10:23:16 Patient TargetsNo targets recorded. Patient InstructionsNo instructions recorded. Reason for Referral None Reported. Problems Name Problem SNOMED Code Status Onset Date Resolution Date Notes Provider Name and Address Organization Details Recorded Time Chronic post-trauma tic stress disorder 751152839 Active 2021 PTSD; 04/07/20 9:03AM by Deloris Robb LPN, Office Visit; Promoted ; acuity set as *; Not Available [facility] 3 03:07:47 Depressive disorder 12247658 Active 2021 Depressi on; 04/07/20 22 9:03AM by Deloris Robb LPN, Office Visit; Promoted ; acuity set as *; Not Available [facility] 3 03:07:48 Bipolar disorder 53110321 Active 2021 bipolar disorder ; 04/07/20 9:03AM by Deloris Robb LPN, Office Visit; Promoted ; acuity set as *; Not Available [facility] 3 03:07:48 Problem Notes None recorded. Procedures Surgical History Date Name Laterality Status Provider Name and Address Organization Details Recorded Time delivery completed [facility] 07/18/2024 11:28:27 Knee Replacement completed [facility] 07/18/2024 11:28:36 Hysterectomy completed [facility] 07/18/2024 11:28:41 lumpectomy of breast completed [facility] 07/18/2024 11:28:50 Imaging Results None recorded. Procedure Notes None recorded. Medical Equipment None Reported. Allergies Allergen ID Allergen Name Allergen Category Reaction Reaction Severity Criticality Documentation Date Start Date Code Code System Note Provider Name and Address Organization Details Recorded Time 39736 [facility] medicatio n swelling Not available Not available 01/30/2023 45797 95 RxNorm React ion: Topic al - burni ng and swell ing; Comme nt: Recor ded 04/13 3:23P M by Nubia Walsh MD, Annot ation /Adde ndum; Promo spencer; Signi fican ce: *; Reaso n: Drug aller gy; ; Not Available [facility] 3 02:25:52 94235 aspirin medicatio n Not available Not available Not available 01/30/2023 1191 RxNorm Comme nt: Recor ded 04/07 9:03A M by Deloris miller, LUZ, Offic e Visit ; Promo spencer; Signi ficelizabeth ce: *; ; Not Available [facility] 3 02:25:53 74132 acetamino phen / diphenhyd ramine / pseudoeph edrine medicatio n hives Not available Not available 01/30/2023 69643 6 RxNorm React ion: Hives ; Comme nt: Recor ded 04/07 9:03A M by Deloris miller, LUZ, Offic e Visit ; Promo spencer; Signi ficelizabeth ce: *; Reaso n: Drug aller gy; ; Not Available [facility] 3 02:25:53 44087 Product containin g penicilli n (product) medicatio n Not available Not available Not available 01/30/2023 62739 8001 SNOMED Comme nt: Recor ded 04/07 9:03A M by Deloris miller, QA AUTOMATION DEVELOPER, Offic e Visit ; Promo spencer; Signi ficelizabeth ce: *; ; Not Available [facility] 3 02:25:53 52343 Substance with sulfonami de structure and antibacte rial mechanism of action (substanc e) medicatio n Not available Not available Not available 01/30/2023 21749 8003 SNOMED Comme nt: Recor ded 04/07 9:03A M by Deloris miller, QA AUTOMATION DEVELOPER, Offic e Visit ; Promo spencer; Signi fican ce: *; ; Not Available [facility] 3 02:25:53 Medications Name Sig Start Date Stop Date Status Note LastModified by Organization Details LastModified Time ketorolac 30 mg/mL (1 mL) injection solution Inject 1 mL by intramus cular route. 01/09 completed Not Available Not Available Not Available promethaz ine 12.5 mg rectal supposito ry Insert 1 supposit ory every 6 hours by rectal route as needed, for nausea/v omiting. 01/09 completed Not Available Not Available Not Available ciproflox acin 0.3 % eye drops 2 gtt in eye(s) q15min x6h, then q30min x18h, then q1h x1 day, then q4h x 7 days 2024 active Not Available Not Available Not Avai lable Tylenol 325 mg tablet as needed 07/18 completed 0; Recorded 12/04/19 22 1:48PM by Ariana Grady, Office Visit; Not Available Not Available Not Available sumatript an active Not Available Not Available Not Available Naprosyn as needed 07/18 completed 0; Recorded 12/04/19 22 1:48PM by Ariana Grady, Office Visit; Not Available Not Available Not Available Diflucan daily 07/18 completed increase d treatmen t; Recorded 04/07/20 9:29AM by tSarr Walsh MD, Office Visit; Refill Quantity : 3; Tablet; Not Available Not Available Not Available hydroxyzi ne HCl 01/09 completed Not Available Not Available Not Available promethaz ine 01/09 completed Not Available Not Available Not Available Prozac active Not Available Not Availa ble Not Available ondansetr on HCl (PF) 4 mg/2 mL injection solution Take 2 mL by injectio n route. 01/09 completed Not Available Not Available Not Available Vitals Date Recorded Body height Body mass index (BMI) Body weight Oxygen saturation Heart rate Respiratory rate Body temperature Systolic And Diastolic Provider Name and Address Organization Details Last Updated DateTime 5 149.86 cm 26.3 kg/m2 49959.0 1 g 99 % 68 /min 16 /min 98.2 [degF] 140/80 mm[Hg] Shani Aggarwal [facility] 5 11:31:57 Date Recorded Body height Body mass index (BMI) Body weight Respiratory rate Oxygen saturation Heart rate Body temperature Systolic And Diastolic Provider Name and Address Organization Details Last Updated DateTime 5 149.86 cm 27.1 kg/m2 56629.4 8 g 17 /min 100 % 62 /min 97.1 [degF] 118/72 mm[Hg] MIGUELINA FRANK [facility] 10:20:48 Social History Question Answer Notes LastModified by Organizat ion Details LastModified Time Tobacco Smoking Status Former Smoker MIGUELINA pope [facility] 01/09/2025 10:24:10 What Was The Date Of Your Most Recent Tobacco Screening? 01/09/2025 Information not available 01/09/2025 Sex: Unknown Functional Status Question Answer Note LastModified by Organizat ion Details LastModified Time Do you or have you ever used any other forms of tobacco or nicotine? Yes [email or web address] Information not available 01/09/2025 Do you or have you ever used e-cigarettes or vape? Current user of electronic cigarettes [email or web address] Information not available 01/09/2025 Mental Status None recorded. Family History Nothing Reported. Medical History No medical history recorded. Gynecological HistoryNo gynecological history recorded. Obstetrics History GPAL:G 0 P 0 0 0 0 Past Encounters Encounter ID Performer Location Encounter Start Date Encounter Closed Date Diagnosis/Indication Diagnosis SNOMED-CT Code Diagnosis ICD10 Code Diagnosis IMO Codes Diagnosis Note [id number] [facility] ([facility]) [address] [place] [phone] 07/18/2024 11:22:20 07/18/2024 15:30:11 Migraine 97356957 G43.909 Rest. Keep follow up as scheduled with PCP and appt with neurology as scheduled. Nausea 722193536 R11.0 [id number] [facility] JESS[facility] ([facility]) [address] [place] [address] 01/09/2025 10:12:14 01/09/2025 10:46:01 Abrasion of left cornea 1081130556 8090824 S05.02XA 9633512 Visual alteration 943008 003 H54.7 [id number] [facility] was able to see patient this morning. Will have exam due to peripheral vision loss on the left. Health Concerns Section Related Observation LastModified by Organization Detai ls LastModified Time None Recorded Concern Status LastModified by Organization Details LastModified Time None Recorded Advance Directives Directive None Recorded Payers Insurance Date Sequence Insurance Name Policy Number Policy Bach Covered Member ID Bach Member ID Guarantor Name 01/09/2025 1 [employer] [id number] Reza Craig [id number] Reza Cunningham 03/09/2025 1 [place] [employer] FROM [facility] [id number] Reza Oconnell Fabiolajanet [id number] 1 Reza Oconnell Octavio Notes Date Note Type Note Provider Name and Address Organization Details Recorded Time 07/18/2024 text/html HeadacheReported by Patient walk in patientpatient is here today for a migraine that she gets all the time, patient said that her pain is 8 out of 10 for the pain. Patient takes sumatriptan and promethazine for her chronic migraine's but today it is not helping. Patient also has nausea and vomiting today YING JESSICA [address] [place] [address], [phone], [facility] 07/18/2024 15:18:48 01/09/2025 text/html ROS as noted in the [facility] walk-in; PCP Dr. Barroso Patient states her puppy jumped up in bed and scratched her left eye. She had contacts in and immediately removed them and flushed her eye. Eye is red. Patient complains of loss of peripheral vision on the left. YING JESSICA [address] [place] [address], [phone], [facility] 01/09/2025 10:45:38 OBGyn Episode No OBEpisode recorded.
--- NOTE | 2025-06-13 00:15 | W.ED.COVID ---
HPI - COVID General: Chief Complaint: COVID symptoms Stated Complaint: Possible Covid\Fever Time Seen by Provider: 06/13/25 00:08 History of Present Illness: 35-year-old female who presents emergency room with COVID and a fever. She says her temp was up to 105. She took 500 of Tylenol and 800 mg of ibuprofen and the fever has not come down yet. She is a little tachycardic on presentation with a fever of 102.1. She has had cough and congestion. No increased work of breathing. Oxygen saturations are good. COVID Results: SARS-CoV-2 RNA (RT-PCR), (NOT DETECTED) Not detected 02/14/21, 10:17 SARS-CoV-2 (PCR) Pending Today, 01:00 Related Data Home Medications ?Medication ?Instructions ?Recorded ?Confirmed [id number]-[id number] 250 2 tab PO Q6H PRN Pain 01/13/23 05/26/24 mg-250 mg-65 mg tablet (Excedrin Extra Strength) ibuprofen 200 mg capsule 200 mg PO Q6H PRN Pain 04/22/23 05/26/24 magnesium 250 mg tablet 250 mg PO DAILY 02/22/24 05/26/24 fluoxetine 20 mg tablet 20 mg PO BID 05/26/24 05/26/24 topiramate 50 mg tablet 50 mg PO BID 05/26/24 05/26/24 Previous Rx's ?Medication ?Instructions ?Recorded promethazine 25 mg tablet 25 mg PO Q6H PRN headache #20 tabs 02/24/24 sumatriptan succinate 50 mg tablet See Rx Instructions PO .COMPLEX 02/24/24 #20 tabs Allergies Allergy/AdvReac Type Severity Reaction Status Date / Time amoxicillin Allergy ALGY-Rash Verified 06/13/25 00:14 diphenhydramine (From Allergy RASH Verified 05/04/23 09:25 Benadryl) Penicillins Allergy RASH Verified 05/04/23 09:25 Sulfa (Sulfonamide Allergy RASH Verified 05/04/23 09:25 Antibiotics) tioconazole (From Monistat 1 Allergy ALGY-Rash Verified 05/04/23 09:25 (tioconazole)) Review of Systems Narrative: Constitutional symptoms: Negative except as documented in HPI. Skin symptoms: Negative except as documented in HPI. Eye symptoms: Negative except as documented in HPI. ENMT symptoms: Negative except as documented in HPI. Respiratory symptoms: Negative except as documented in HPI. Cardiovascular symptoms: Negative except as documented in HPI. Gastrointestinal symptoms: Negative except as documented in HPI. Genitourinary symptoms: Negative except as documented in HPI. Musculoskeletal symptoms: Negative except as documented in HPI. Neurologic symptoms: Negative except as documented in HPI. Psychiatric symptoms: Negative except as documented in HPI. Endocrine symptoms: Negative except as documented in HPI. PFS ED PFSH: Medical History (Updated 06/13/25 @ 01:20 by Tanika Gray MD) PTSD (post-traumatic stress disorder) Generalized anxiety disorder delivery delivered Abdominal distension Colon polyp Chronic diarrhea Chronic cholecystitis Epigastric pain Surgical History History of tonsillectomy History of meniscectomy of right knee History of tubal ligation History of endometrial ablation H/O total hysterectomy History of breast lump removal left Family History Father Anesthesia complication Cancer Hypertension Grandmother Chronic kidney disease (CKD) Dementia Grandfather Dementia Denies family history of Diabetes CAD (coronary artery disease) Clotting disorder Hyperlipidemia Psychiatric illness Suicide Bleeding disorder Family history of premature coronary artery disease Lung disease Stroke Social History Smoking and tobacco/nicotine status: current every day tobacco/nicotine user Alcohol intake: current Alcohol intake frequency: few times a month Physical Exam Narrative: EXAM NARRATIVE: General: Alert, no acute distress. Skin: Warm, dry. Head: Normocephalic, atraumatic. Neck: Supple, trachea midline. Eye: Extraocular movements are intact. Ears, nose, mouth and throat: mucosa moist. Cardiovascular: Regular, Normal peripheral perfusion. Respiratory: Lungs are clear to auscultation, respirations are non-labored, breath sounds are equal, Symmetrical chest wall expansion. Gastrointestinal: Soft, Nontender, Non distended Musculoskeletal: Normal ROM, no deformity. Neurological: Alert and oriented, No focal neurological deficit observed. Psychiatric: Cooperative, appropriate mood & affect. Course Vital Signs: Vital signs: Vital Signs Temperature 102.1 F H 06/13/25 00:06 Pulse Rate 110 H 06/13/25 01:04 Respiratory Rate 18 06/13/25 00:06 Blood Pressure 105/71 06/13/25 01:04 Pulse Oximetry 98 06/13/25 01:07 Oxygen Delivery Me thod Room Air 06/13/25 01:07 MDM - COVID Medical Decision Making Medical decision making Patient's reason for coming to the emergency room: COVID cannot get fever down. Social determinants: Employed I reviewed the patient's medical record. No chronic medical problems I reviewed the patient's current home meds No chronic medications Alternate historians: None Differential diagnosis: including but not limited to and based on the above HPI, review of systems and physical exam: Patient has known fever and COVID. No indication for any testing today. They are going to try to help get her fever down little more. Orders placed to evaluate differential diagnosis based on the above differential, HPI and physical exam Reexamination: Patient has not had any oxygen requirements. Temp is coming down. No increased work of breathing. Assessment and plan: COVID-19 Fever Dehydration ? IV fluids, IV Tylenol, IV Toradol, IV Decadron - Discharged home - Discussed plan with patient. Answered any questions. - Evaluation and treatment of this problem were appropriate in the emergency setting. Lab Data SARS-CoV-2 RNA (RT-PCR), (NOT DETECTED) Not detected 02/14/21, 10:17 SARS-CoV-2 (PCR) Pending Today, 01:00 No radiology studies performed this visit Discharge Plan Discharge Patient Disposition: Home Clinical Impression: COVID-19 Condition: Stable Prescriptions: No Action ibuprofen 200 mg capsule 200 mg PO Q6H PRN (Reason: Pain) Excedrin Extra Strength 250-250-65 mg Tablet 2 tab PO Q6H PRN (Reason: Pain) magnesium 250 mg Tablet 250 mg PO DAILY promethazine 25 mg tablet 25 mg PO Q6H PRN (Reason: headache) Qty: 20 0RF sumatriptan succinate 50 mg tablet See Rx Instructions .ROUTE .COMPLEX Qty: 20 0RF Rx Instructions: take 1 tab at onset of headache; if no relief may repeat 1 tab after at least 2 hrs; max = 4 tabs/24 hr fluoxetine 20 mg tablet 20 mg PO BID topiramate 50 mg tablet 50 mg PO BID Discharge Orders: Discharge ED (Routine); Ordered 06/13/25 Ordered By: Tanika Gray Referrals: Colette Barroso DO [Primary Care Provider, MECHANICAL INSULATOR] Discharge Diet: Usual diet Discharge Activity: Increase activity as tolerated Patient Instructions: COVID-19 (Coronavirus Disease 2019) (ED), Opioid Safety, Pain Management, Patient Portal & Verena Instructions Activity Restrictions/Additional Instructions: Thank you for choosing [facility] for your healthcare needs today. You have been screened and evaluated and felt safe for discharge. Health conditions do change or evolve sometimes and as such it is important that you follow up with your Primary Doctor to be re checked, 3-5 days is a general good time frame for follow up. You are always welcome to return to the ED for re assessment if your symptoms are worsening or you have new concerns Print Language: Rwandan Coding Level of Care Code ED Ceramic Saw Tender for Burke Rivas
[2025-06-13] MEDS: acetaminophen 1,000 MG/100 ML PIGGYBACK 400 MG IV (01:02)
[2025-06-13 01:04] VITALS: BP 105/71; PULSE 110; O2SAT 99
[2025-06-13 01:07] VITALS: O2SAT 98
[2025-06-13 01:59] LABS: Respiratory Syncytial Virus Ce NEGATIVE (Negative)
[2025-06-13 02:08] LABS: SARS-CoV-2 PCR Positive (Negative)
[2025-06-13 02:14] VITALS: BP 107/65; PULSE 107; O2SAT 98
== END 2025-06-13 02:29 | disposition home or self-care (01) ==
PROVIDERS: Emergency Provider Emergency Medicine; PCP Family Medicine
DX: U07.1 COVID-19 (principal); Z72.0 Tobacco use
CPT/HCPCS: 87637; 96365; 96375; 99284; J0131; J1100; J1885; J7030